=== PATIENT | male | born 1935 | race Caucasian/White ===

== ENCOUNTER → 2016-06-18 | Outpatient (CLI) | payer OTHER, MEDICARE ==
[~2016-06-18] MED LIST: ASPI81TA28 PO; CALC-220 PO; CHOL20007 PO; COEN200C4 PO; GLUCTAB7 PO; LPRIUNK IM; MULT-190 PO; MULT-506 PO; OMEP40CA41 PO; PRAV20TA PO; PRVC/40 PO; TPRSR/25 PO; ZVR400 PO; [UNRECOGNIZED DRUG - CODE] INJ
--- NOTE | 2016-06-18 12:26 | DIAGNOSTIC IMAGING REPORT ---
ADDENDUM Addendum: There is a voice recognition are on the original report. The last line of the first page should read as follows: There are NO FDG avid skeletal lesions Electronically signed by: Gaetano Boo M.D. 06/20/2016 2:07 PM Dictated Date/Time: 06/20/2016 2:06 PM ORIGINAL REPORT PET/CT SKULL-THIGH CLINICAL HISTORY: PROSTATE CANCER COMPARISON STUDY: 12/21/2015 FINDINGS: The patient was injected with 14.7 mCi of F 18 labeled FDG. Findings standard induction phase, PET/CT scanning was performed from the skull base the upper thigh region. Activity within neck is felt to be physiologic. Within the chest, there is a 3.6 cm masslike opacity which is only minimally FDG avid with SUV maximum of 1.8. This is slowly enlarging when compared with multiple prior studies. There is no FDG avid adenopathy. The previously identified FDG avid lymph nodes, currently demonstrate normal activity. Within the abdomen and pelvis, there is no FDG avid hepatic disease. There is no FDG avid adrenal activity. There is physiologic urinary tract and bowel activity. Within the low pelvis to the right of midline, there is intense focus of increased FDG activity with SUV maximum of 6.2. This fuses to either colon or ureter. There are no pathologic masses identified to explain this activity and therefore ureteral activity is favored. This area warrants close follow-up. There are FDG avid skeletal lesions. There is left-sided nephrolithiasis IMPRESSION: 1. The previously identified FDG avid lymph nodes have diminished in size, and are no longer FDG avid 2. 3.6 cm area of masslike consolidation within the left lower lobe. This appears slowly enlarging over studies dating back to December 2013. This is only minimally FDG avid with SUV maximum of 1.8. 3. Focus of intense increased activity within the lower right pelvis. There are no corresponding masses on the noncontrast portion of the study. This therefore favors focal ureteral activity. Close follow-up of this area is recommended. Electronically signed by: Gaetano Boo M.D. 06/18/2016 12:25 PM Dictated Date/Time: 06/18/2016 12:13 PM
== END | disposition home or self-care (01) ==
LOC: C.PET 08:30
PROVIDERS: ATTEND Internal Medicine
DX: C61 Malignant neoplasm of prostate (principal)

== ENCOUNTER → 2016-11-22 | Day surgery (SDC) | payer OTHER, MEDICARE ==
[2016-10-30 08:18] VITALS: Ht 168.9 cm; Wt 77.3 kg
[~2016-11-22] VITALS: Ht 168.9 cm; Wt 77.3 kg
[~2016-11-22] MED LIST changes: -CALC-220 PO; +IOPAMIDOL INJ 61% 15 ML VIAL ONE; +LIDOCAINE HCL 1% MPF 5 ML VIAL ONE; -PRAV20TA PO; +SODIUM CHLORIDE 0.9% INJ 10 ML VIAL ONE
--- NOTE | 2016-11-22 13:17 | History & Physical Bridge - SC ---
H&P Re-Evaluation Bridge Note: I have examined the patient, reviewed the History & Physical and in the interval since the performance of the History & Physical I have noted the following changes of clinical significance: No changes noted
[2016-11-22 13:43] VITALS: TEMP 36.9
--- NOTE | 2016-11-22 13:51 | Discharge Instructions ---
Discharge Instructions Date of Service Nov 22, 2016. Visit Reason for Visit: Lumbar Radiculopathy Discharge Discharge Diagnosis / Problem: left leg pain Discharge Goals Goal(s): Decrease discomfort, Improve function Medications Stopped Medications Name(s): ASA- LAST DOSE SATURDAY Activity Recommendations Activity Limitations: resume your previous activity Anesthesia . Post Anesthesia Instructions: If you have had General Anesthesia or IV Sedation: * Do not drive today. * Resume driving when surgeon permits. * Do not make important decisions or sign legal documents today. * Call surgeon for: 1. Temperature elevations greater than 101 degrees F. 2. Uncontrollable pain. 3. Excessive bleeding. 4. Persistent nausea and vomiting. 5. Medication intolerance (nausea, vomiting or rash). * For nausea and vomiting use only clear liquids such as: tea, soda, bouillon until nausea subsides, then gradually increase diet as tolerated. * If you have any concerns or questions, call your surgeon's office. If physician is unavailable and it is an emergency, call 911 or go to the nearest emergency room. . Diet Recommendations Recommended Home Diet: resume previous diet Procedures Procedures Performed: LUMBAR EPIDURAL STEROID INJECTION, CHANGED TO CAUDAL APPROACH Pending Studies Studies pending at discharge: no Medical Emergencies . Who to Call and When: Medical Emergencies: If at any time you feel your situation is an emergency, please call 911 immediately. . Non-Emergent Contact Non-Emergency issues call your: Specialist . . "Provider Documentation" section prepared by Meng Argueta. .
[2016-11-22 14:00] VITALS: BP 172/103; PULSE 67; O2SAT 97
--- NOTE | 2016-11-22 14:44 | OPERATIVE REPORT ---
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 POSTOPERATIVE DIAGNOSIS: Same. PROCEDURE: Caudal epidural steroid injection under fluoroscopic guidance. SURGEON: Dr. Meng Argueta. INDICATIONS: The patient is a 81-year-old white male who was unable to tolerate gabapentin and who still continues to have left-sided radicular pain. He would like to proceed with an epidural steroid injection to provide him with some relief of the radicular pain. PHYSICAL EXAMINATION: Pleasant male seated comfortably in no apparent distress. He has normal lower extremity: No focal weakness. No sensory disturbance and negative seated straight leg raises. CONSENT: Verbal and written consent was obtained from the patient. Risks and benefits were reviewed. Risks include but are not limited to epidural abscess, epidural hematoma, allergic reaction. He wishes to proceed. PROCEDURE: The patient was taken back to the special procedures room of the [facility] where he was maintained in a prone position. Backside was cleansed with Betadine x3 and a dry sterile dressing was applied. Fluoroscope was used to identify the sacral hiatus and the sacral canal and the overlying skin was anesthetized in the sacral hiatus with 4 mL of lidocaine 1% with a 25 gauge 1.5-inch needle. A 25 gauge 3.5 inch spinal needle was then directed under lateral fluoroscopic guidance into the lateral sacral canal. He then underwent injection after negative aspiration of 40 mg of Depo-Medrol and 5 mL of preservative free sodium chloride. Injection was well tolerated. DISPOSITION: 1. The patient is taken out into the discharge recovery area where he will be discharged home once discharge criteria have been met. 2. Follow up in the [facility] office in 2-4 weeks. I attest to the content of the Intraoperative Record and any orders documented therein. Any exception s are noted below.
== END | disposition home or self-care (01) ==
LOC: X.SURG 12:30
PROVIDERS: ATTEND Physical Medicine & Rehabilitation
DX: M99.73 Connective tissue and disc stenosis of intervertebral foramina of lumbar region (principal); M54.17 Radiculopathy, lumbosacral region; Z79.899 Other long term (current) drug therapy

== ENCOUNTER 2020-08-03 08:50 | Inpatient (IN) ==
[2020-08-03 09:48] LABS: Basophils # (auto) 0.04 K/uL (0-0.2); Basophils % (auto) 0.4 %; Eosinophils # (auto) 0.09 K/uL (0-0.5); Eosinophils % (auto) 0.9 %; Hematocrit (blood only) 42.7 % (42-52); Hemoglobin 14.1 g/dL (14.0-18.0); Immature Granulocytes # (auto) 0.03 K/uL (0.00-0.02); Immature Granulocytes % (auto) 0.3 %; Lymphocytes # (auto) 0.39 K/uL (1.2-3.4); Lymphocytes % (auto) 3.8 %; Mean Corpuscular Hemoglobin 31.1 pg (25-34); Mean Corpuscular Volume 94.1 fL (80-100); Mean Platelet Volume 10.2 fL (7.4-10.4); Monocytes # (auto) 0.34 K/uL (0.11-0.59); Monocytes % (auto) 3.3 %; Neutrophils # (auto) 9.35 K/uL (1.4-6.5); Neutrophils % (auto) 91.3 %; Platelet Count 246 K/uL (130-400); RDW Coefficient of Variation 13.6 % (11.5-14.5); RDW Standard Deviation 47.1 fL (36.4-46.3); Red Blood Count 4.54 M/uL (4.7-6.1); White Blood Count 10.24 K/uL (4.8-10.8)
[2020-08-03 09:55] LABS: Alanine Aminotransferase 28 U/L (12-78); Albumin Level 3.2 gm/dl (3.4-5.0); Aspartate Aminotransferase 22 U/L (15-37); BUN Creatinine Ratio 22.4 (10-20); Blood Urea Nitrogen 23 mg/dl (7-18); Calcium 10.1 mg/dl (8.5-10.1); Carbon Dioxide 28 mmol/L (21-32); Chloride 104 mmol/L (98-107); Est GFR (African American) 77.1 ml/min; Est GFR (Non-African American) 66.6 ml/min; Glucose 145 mg/dl (70-99); Potassium 4.4 mmol/L (3.5-5.1); Sodium 137 mmol/L (136-145)
[2020-08-03 10:07] LABS: Albumin Globulin Ratio 0.8 (0.9-2); Alkaline Phosphatase 97 U/L (45-117); Bilirubin,Total 0.4 mg/dl (0.2-1); Creatine Kinase 43 U/L (39-308); Creatine Kinase MB 2.1 ng/ml (0.5-3.6); Globulin 3.9 gm/dl (2.5-4.0); Thyroid Stimulating Hormone 0.959 uIu/ml (0.300-4.500); Total Protein 7.1 gm/dl (6.4-8.2); Troponin I < 0.015 ng/ml (0-0.045)
--- NOTE | 2020-08-03 10:07 | Emergency Department Note ---
History of Present Illness General Chief complaint: Illness Stated complaint: SWEAY,WEAK,LT SIDE PAIN,DIARRHEA,FALL 2WKS AGO Time Seen by Provider: 08/03/20 09:28 Source: patient, family, RN notes reviewed and old records reviewed Mode of arrival: ambulatory Limitations: no limitations History of Present Illness Provider complaint: Syncopal episode Onset (ago): hour(s) 1 Location: head Radiation: non-radiation Severity: moderate Pain Consistency: + now resolved Current Pain Intensity: 0 Quality: + aching Relieved By: + immobilization Exacerbated By: + movement Associated symptoms: + diaphoresis, + shortness of breath and + weakness; no chest pain, no cough, no fever/chills, no headaches and no nausea/vomiting Treatments prior to arrival: none This is an 84-year-old male who presents emergency department after syncopal episode at home. The patient reports he was using the bathroom today when he became diaphoretic and passed out. The patient reports he broke his collarbone approximately 2 weeks ago and has been on opioids. They have caused him to be extremely constipated and he was having difficulty moving his bowels until this morning. This morning the patient reports he had a very large bowel movement which caused him to pass out. He has not taken anything since passing out. He reported feeling dizzy and weak before the syncopal episode. He denies any chest pain or shortness of breath. Home Medications Medication Instructions Recorded Confirmed Type leuprolide (6 month) 45 mg 45 mg IM Q24W 07/08/20 08/03/20 History intramuscular syringe kit nitroglycerin 0.4 mg sublingual 0.4 mg SUBLINGUAL Q5M PRN 07/08/20 08/03/20 History tablet rosuvastatin 40 mg tablet 40 mg PO HS 07/08/20 08/03/20 History tramadol 50 mg tablet 50 mg PO QID PRN tab 07/08/20 08/03/20 History zoledronic acid 4 mg/100 mL in 4 mg IV Q24W ml 07/08/20 08/03/20 History mannitol 5 %-water intravenous piggybck Cbd Oil 50 ml PO Q12 07/09/20 08/03/20 History Inj For Wet Macular Degenerate 1 dose INJ Q24W 07/09/20 08/03/20 History Quercetin 500 mg PO DAILY 07/09/20 08/03/20 History Turmeric Forte 2 tab PO DAILY 07/09/20 07/09/20 History acyclovir 400 mg PO QAM 07/09/20 08/03/20 History cholecalciferol (vitamin D3) 50 mcg PO QAM 07/09/20 08/03/20 History [Vitamin D3] coQ10 (ubiquinol) 200 mg PO QAM 07/09/20 08/03/20 History metoprolol succinate 50 mg PO HS 07/09/20 08/03/20 History omeprazole 40 mg PO DAILY 07/09/20 08/03/20 History vit C,K-Mp-xvwvo-lutein-zeaxan 1 tab PO BID 07/09/20 08/03/20 History [PreserVision AREDS-2] valsartan 80 mg PO PM 08/03/20 08/03/20 History Allergies Allergy/AdvReac Type Severity Reaction Status Date / Time No Known Allergies Allergy Verified 08/03/20 10:46 Past Med/Surg History Medical History (Updated 08/03/20 @ 15:17 by ESDRAS Gonzalez) Barretts esophagus Coronary artery disease GERD (gastroesophageal reflux disease) Heart disease History of radiation therapy For prostate cancer in 1998 at [place] For gynecomastia 09/04/06 at [facility] SBRT to lung 09/07/14 at [facility] Hyperlipidemia Hypertension Kidney stone Macular degeneration Prostate cancer Diagnosed 01/03/99 at [place] in [place] 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 Scoliosis Unstable angina Surgical History H/O blepharoplasty H/O cystoscopy H/O heart artery stent H/O laminectomy H/O rotator cuff surgery Right H/O vasectomy History of bronchoscopy History of cardiac cath History of cataract surgery History of cryosurgery For recurrent prostate cancer August 2005 History of surgery Bronchoscopy, Right thoracoscopy with lower lobectomy and thoracic lymphadenectomy - metastatic prostate cancer 06/09/13 Hx of CABG Hx of tonsillectomy S/P angioplasty with stent Family History Mother , 95yo Macular degeneration Natural with unknown cause Father , 87yo Prostate cancer Brother Esophageal cancer Brother Prostate cancer Sister No problems noted. Son No problems noted. Daughter No problems noted. 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 [employer]; Other Information That Helps Us Care for You: No Feels Safe at Home: Yes Safety Concerns: Feels Safe At This Time caffeine: Yes (1 cup/day) during the past year weight has: remained stable Assistive Devices: None Review of Systems A total of 10 systems reviewed and were otherwise negative Physical Exam Vital Signs Vital Signs - 24 hr 08/03/20 08:56 08/03/20 12:00 08/03/20 14:00 Temperature 36.2 C L Temperature Source Temporal Artery Scan Pulse Rate 60 Pulse Rate [Left Apical] 96 H 97 H Pulse Rhythm [Left Apical] Regular Regular Pulse Strength [Left Apical] Normal Normal Respiratory Rate 20 17 17 Respiratory Effort / Characteristics Non-Labored Spontaneous Non-Labored Spontaneous Non-Labored Spontaneous Respiratory Depth Normal Normal Normal Respiratory Pattern Regular Regular Blood Pressure 94/51 L Blood Pressure [Left Arm] 114/82 149/65 H Blood Pressure Mean 65 Blood Pressure Mean [Left Arm] 92 93 Blood Pressure Position [Left Arm] Lying Lying Pulse Oximetry 96 99 98 Oxygen Delivery Method Room Air Room Air Room Air Sepsis Recent Fever Within 48 Hours No Sepsis New/Unexplained Change in Mental Status N/A Sepsis Action Taken by Nursing No Action Required VITAL SIGNS - Vital signs and nursing notes were reviewed. GENERAL - 84-year-old male appearing stated age who is in no acute distress. Communicates well with provider and answers questions appropriately. SKIN - Without rashes. HEAD - NC/AT. EYES - PERRL with EOMI bilaterally. Sclera anicteric. Palpebral conjunctiva pink and moist with no injection noted. EARS - No deformities of external structures noted on gross examination bi laterally. NOSE - Midline and without cyanosis. No epistaxis or purulent drainage noted. Septum midline without deviation or septal hematoma noted. MOUTH/OROPHARYNX - Without perioral cyanosis. Buccal mucosa pink and moist and without leukoplakia. Tongue midline with equal elevation of palate bilaterally. No tonsillar hypertrophy, erythema, or exudates noted. NECK - Neck with FROM. Supple to palpation. No nuchal rigidity. LUNGS - Chest wall symmetric without accessory muscle use, intercostals retractions, or central cyanosis. Normal vesicular breath sounds CTA B/L. No wheezes, rales, or rhonchi appreciated. CARDIAC - RRR with S1/S2. No murmur, rubs, or gallops appreciated. ABDOMEN - Abdominal contour without pulsations or visible masses. BS normoactive all four quadrants. No tenderness, palpable masses, hepatosplenomegaly, or ascites noted. EXTREMITIES - No clubbing or peripheral cyanosis. No pretibial edema present. +3/5 radial, posterior tibial, and dorsalis pedis pulses palpated throughout. +5/5 strength noted in UE/LE bilaterally. Pt wearing sling for left arm NEUROLOGIC - Cranial nerves II through XII grossly intact. Sensory intact to light touch throughout. Patellar reflexes +2/4. PSYCH - A&Ox3 and cooperates fully with examiner. Pt is very pleasant and interacts well with examiner. Course Administered Medications Ondansetron HCl (Ondansetron Inj 2 Mg/Ml 2 Ml Vial) 4 mg IV Q6H PRN PRN Reason: Nausea Stop: 09/02/20 16:05 Last Admin: 08/03/20 17:20 Dose: 4 mg Documented by: [id number] Discontinued Medications Enoxaparin Sodium (Enoxaparin 80 Mg/0.8 Ml Syr) 70 mg SQ NOW STA Stop: 08/03/20 14:44 Last Admin: 08/03/20 15:26 Dose: 70 mg Documented by: [id number] Ioversol (Optiray 350 500ml) 120 ml IV ONCE ONE Stop: 08/03/20 12:47 Last Admin: 08/03/20 12:47 Dose: 120 ml Documented by: [id number] Ondansetron HCl (Ondansetron Inj 2 Mg/Ml 2 Ml Vial) 4 mg IV NOW STA Stop: 08/03/20 12:08 Last Admin: 08/03/20 12:15 Dose: 4 mg Documented by: [id number] Medical Decision Making Differential Diagnosis Infection, dehydration, metabolic abnormality, hypo/hyperglycemia, electrolyte disturbance, anemia, hypoxia, cardiac sources, intracerebral event, toxicologic, neurologic, as well as other pathologies. Medical Records Attestation: I reviewed the patient's medical records. Home Medications Current Medication List: was personally reviewed by me Laboratory Data Attestation: I reviewed the patient's lab results. Result diagrams: 08/03/20 09:20 08/03/20 09:20 Lab Results 08/03/20 08/03/20 08/03/20 Range/Units 09:20 09:20 09:20 WBC 10.24 (4.8-10.8) K/uL RBC 4.54 L (4.7-6.1) M/uL Hgb 14.1 (14.0-18.0) g/dL Hct 42.7 (42-52) % MCV 94.1 (80-100) fL MCH 31.1 (25-34) pg MCHC 33.0 (32-36) g/dL RDW Std Deviation 47.1 H (36.4-46.3) fL RDW Coeff of Lissa 13.6 (11.5-14.5) % Plt Count 246 (130-400) K/uL MPV 10.2 (7.4-10.4) fL Immature Gran % (Auto) 0.3 % Neut % (Auto) 91.3 % Lymph % (Auto) 3.8 % [place] % (Auto) 3.3 % Eos % (Auto) 0.9 % Baso % (Auto) 0.4 % Neut # (Auto) 9.35 H (1.4-6.5) K/uL Lymph # (Auto) 0.39 L (1.2-3.4) K/uL [place] # (Auto) 0.34 (0.11-0.59) K/uL Eos # (Auto) 0.09 (0-0.5) K/uL Baso # (Auto) 0.04 (0-0.2) K/uL Immature Gran # (Auto) 0.03 H (0.00-0.02) K/uL PT (9.0-12.0) Seconds INR (0.9-1.1) APTT (21.0-31.0) Seconds PTT Ratio Sodium 137 (136-145) mmol/L Potassium 4.4 (3.5-5.1) mmol/L Chloride 104 (98-107) mmol/L Carbon Dioxide 28 (21-32) mmol/L Anion Gap 5.0 (3-11) BUN 23 H (7-18) mg/dl Creatinine 1.04 (0.6-1.4) mg/dl Est Cr Clr Drug Dosing Not Reportable Est GFR ( Amer) 77.1 ml/min Est GFR (Non-Af Amer) 66.6 ml/min BUN/Creatinine Ratio 22.4 H (10-20) Glucose 145 H (70-99) mg/dl Lactate (0.4-2.0) mmol/L Calcium 10.1 (8.5-10.1) mg/dl Total Bilirubin 0.4 (0.2-1) mg/dl AST 22 (15-37) U/L ALT 28 (12-78) U/L Alkaline Phosphatase 97 (45-117) U/L Total Creatine Kinase 43 (39-308) U/L CK-MB (CK-2) 2.1 (0.5-3.6) ng/ml CK/CKMB % Calc 4.9 H (0-3.0) Troponin I < 0.015 (0-0.045) ng/ml NT-Pro-B Natriuret Pep 187 (0-1800) pg/ml Total Protein 7.1 (6.4-8.2) gm/dl Albumin 3.2 L (3.4-5.0) gm/dl Globulin 3.9 (2.5-4.0) gm/dl Albumin/Globulin Ratio 0.8 L (0.9-2) TSH 0.959 (0.300-4.500) uIu/ml Urine Color Urine Appearance (Clear) Urine pH (4.5-7.5) Ur Specific [place] (1.000-1.030) Urine Protein (Negative) Urine Glucose (UA) (Negative) Urine Ketones (Negative) Urine Blood (Negative) Urine Nitrite (Negative) Urine Bilirubin (Negative) Urine Urobilinogen (Negative) Ur Leukocyte Esterase (Negative) Urine WBC (Auto) (0-5) /hpf Urine RBC (Auto) (0-4) /hpf U Hyaline Cast (Auto) (0-5) /lpf U Epithel Cells (Auto) (0-5) /lpf Urine Bacteria (Auto) (Negative) COVID-19 Eval Order SARS-CoV-2 (PCR) (Negative) 08/03/20 08/03/20 08/03/20 Range/Units 13:55 13:55 13:55 WBC (4.8-10.8) K/uL RBC (4.7-6.1) M/uL Hgb (14.0-18.0) g/dL Hct (42-52) % MCV (80-100) fL MCH (25-34) pg MCHC (32-36) g/dL RDW Std Deviation (36.4-46.3) fL RDW Coeff of Lissa (11.5-14.5) % Plt Count (130-400) K/uL MPV (7.4-10.4) fL Immature Gran % (Auto) % Neut % (Auto) % Lymph % (Auto) % [place] % (Auto) % Eos % (Auto) % Baso % (Auto) % Neut # (Auto) (1.4-6.5) K/uL Lymph # (Auto) (1.2-3.4) K/uL [place] # (Auto) (0.11-0.59) K/uL Eos # (Auto) (0-0.5) K/uL Baso # (Auto) (0-0.2) K/uL Immature Gran # (Auto) (0.00-0.02) K/uL PT (9.0-12.0) Seconds INR (0.9-1.1) APTT (21.0-31.0) Seconds PTT Ratio Sodium (136-145) mmol/L Potassium (3.5-5.1) mmol/L Chloride (98-107) mmol/L Carbon Dioxide (21-32) mmol/L Anion Gap (3-11) BUN (7-18) mg/dl Creatinine (0.6-1.4) mg/dl Est Cr Clr Drug Dosing Est GFR ( Amer) ml/min Est GFR (Non-Af Amer) ml/min BUN/Creatinine Ratio (10-20) Glucose (70-99) mg/dl Lactate (0.4-2.0) mmol/L Calcium (8.5-10.1) mg/dl Total Bilirubin (0.2-1) mg/dl AST (15-37) U/L ALT (12-78) U/L Alkaline Phosphatase (45-117) U/L Total Creatine Kinase (39-308) U/L CK-MB (CK-2) (0.5-3.6) ng/ml CK/CKMB % Calc (0-3.0) Troponin I (0-0.045) ng/ml NT-Pro-B Natriuret Pep (0-1800) pg/ml Total Protein (6.4-8.2) gm/dl Albumin (3.4-5.0) gm/dl Globulin (2.5-4.0) gm/dl Albumin/Globulin Ratio (0.9-2) TSH (0.300-4.500) uIu/ml Urine Color Yellow Urine Appearance Clear (Clear) Urine pH 5.0 (4.5-7.5) Ur Specific [place] > 1.045 H (1.000-1.030) Urine Protein Trace H (Negative) Urine Glucose (UA) Negative (Negative) Urine Ketones Trace H (Negative) Urine Blood Negative (Negative) Urine Nitrite Negative (Negative) Urine Bilirubin Negative (Negative) Urine Urobilinogen Negative (Negative) Ur Leukocyte Esterase Negative (Negative) Urine WBC (Auto) 1-5 (0-5) /hpf Urine RBC (Auto) 0-4 (0-4) /hpf U Hyaline Cast (Auto) 1-5 (0-5) /lpf U Epithel Cells (Auto) 5-10 H (0-5) /lpf Urine Bacteria (Auto) Negative (Negative) COVID-19 Eval Order Covid19 at [facility] SARS-CoV-2 (PCR) NEGATIVE (Negative) 08/03/20 08/03/20 Range/Units 14:20 14:20 WBC (4.8-10.8) K/uL RBC (4.7-6.1) M/uL Hgb (14.0-18.0) g/dL Hct (42-52) % MCV (80-100) fL MCH (25-34) pg MCHC (32-36) g/dL RDW Std Deviation (36.4-46.3) fL RDW Coeff of Lissa (11.5-14.5) % Plt Count (130-400) K/uL MPV (7.4-10.4) fL Immature Gran % (Auto) % Neut % (Auto) % Lymph % (Auto) % [place] % (Auto) % Eos % (Auto) % Baso % (Auto) % Neut # (Auto) (1.4-6.5) K/uL Lymph # (Auto) (1.2-3.4) K/uL [place] # (Auto) (0.11-0.59) K/uL Eos # (Auto) (0-0.5) K/uL Baso # (Auto) (0-0.2) K/uL Immature Gran # (Auto) (0.00-0.02) K/uL PT 10.5 (9.0-12.0) Seconds INR 1.0 (0.9-1.1) APTT 24.8 (21.0-31.0) Seconds PTT Ratio 0.9 Sodium (136-145) mmol/L Potassium (3.5-5.1) mmol/L Chloride (98-107) mmol/L Carbon Dioxide (21-32) mmol/L Anion Gap (3-11) BUN (7-18) mg/dl Creatinine (0.6-1.4) mg/dl Est Cr Clr Drug Dosing Est GFR ( Amer) ml/min Est GFR (Non-Af Amer) ml/min BUN/Creatinine Ratio (10-20) Glucose (70-99) mg/dl Lactate 2.0 (0.4-2.0) mmol/L Calcium (8.5-10.1) mg/dl Total Bilirubin (0.2-1) mg/dl AST (15-37) U/L ALT (12-78) U/L Alkaline Phosphatase (45-117) U/L Total Creatine Kinase (39-308) U/L CK-MB (CK-2) (0.5-3.6) ng/ml CK/CKMB % Calc (0-3.0) Troponin I (0-0.045) ng/ml NT-Pro-B Natriuret Pep (0-1800) pg/ml Total Protein (6.4-8.2) gm/dl Albumin (3.4-5.0) gm/dl Globulin (2.5-4.0) gm/dl Albumin/Globulin Ratio (0.9-2) TSH (0.300-4.500) uIu/ml Urine Color Urine Appearance (Clear) Urine pH (4.5-7.5) Ur Specific [place] (1.000-1.030) Urine Protein (Negative) Urine Glucose (UA) (Negative) Urine Ketones (Negative) Urine Blood (Negative) Urine Nitrite (Negative) Urine Bilirubin (Negative) Urine Urobilinogen (Negative) Ur Leukocyte Esterase (Negative) Urine WBC (Auto) (0-5) /hpf Urine RBC (Auto) (0-4) /hpf U Hyaline Cast (Auto) (0-5) /lpf U Epithel Cells (Auto) (0-5) /lpf Urine Bacteria (Auto) (Negative) COVID-19 Eval Order SARS-CoV-2 (PCR) (Negative) Imaging Data Attestation: I personally reviewed and interpreted this imaging study as tammio ws: Radiologist's Impression: Chest X-Ray 08/03/20 09:34 SINGLE VIEW CHEST CLINICAL HISTORY: Generalized weakness. FINDINGS: An AP, portable, upright chest radiograph is compared to study dated 07/09/2020 and correlated with chest CT dated 06/22/2014 and PET/CT dated 07/29/2019. The patient is status post midline sternotomy. The heart is mildly enlarged noting atherosclerotic calcification of the thoracic aorta. The pulmonary vasculature is noncongested. There is volume loss in the left lung with elevation of the left hemidiaphragm. There are 2 nodular densities in the right midlung measuring up to 1.8 cm. No airspace consolidation is seen typical for pneumonia and there is no large pleural effusion. No pneumothorax is seen. The skeletal structures are osteopenic. The bony thorax is grossly intact. A right shoulder arthroplasty is in place. Advanced arthritic change is seen in the left shoulder. IMPRESSION: 1. There is volume loss in the left lung with elevation of the left hemidiaphragm. This could be on a postoperative basis or could represent left lower lobe atelectasis. Clinical correlation will be required. 2. There are at least 2 nodular lesions identified in the right lung as above. 3. There is no airspace consolidation typical for pneumonia or large pleural effusion. ACT 112: Negative or not required by law. Electronically signed by: Sushant Rosado M.D. 08/03/2020 10:07 AM Chest CTA 08/03/20 10:10 CHEST CTA for PULMONARY ARTERIES CT DOSE: 559.44 mGycm HISTORY: Shortness of breath. Cough. TECHNIQUE: Multiaxial CT images of the chest were performed following the intravenous administration of contrast to evaluate the pulmonary arteries. Maximal intensity projection images were also obtained. A dose lowering technique was utilized adhering to the principles of ALARA. COMPARISON STUDY: PET CT 07/29/2019. Chest CT 06/22/2014. FINDINGS: Normal caliber thoracic aorta with no evidence for dissection. The heart is borderline enlarged. There are poststernotomy changes. Small left pleural effusion. There is a large filling defects within the distal left main pulmonary artery and extending into the left lower lobe pulmonary arteries consistent with a pulmonary embolus. The right main pulmonary artery is patent. The majority of the segmental and subsegmental pulmonary arteries are nondiagnostic due to the respiratory motion. Limited views of the upper abdomen demonstrate a normal spleen and adrenal glands. There are multiple left renal calculi. A 6 mm hypodense lesion within the left hepatic lobe remains stable. Normal esophagus. Left anterior mediastinal lymphadenopathy/mass is again noted measuring up to 3.1 cm. There is mild left hilar lymphadenopathy. No suspicious lytic or blastic osseous lesions. There is a right shoulder prosthesis. No pneumothorax. Increase in size and number of multiple bilateral pulmonary nodules/masses. This likely represents metastatic disease. Dominant mass within the left lower lobe measures 4.3 cm, previous measuring 3.5 cm. Consolidation at the base of the left lower lobe. IMPRESSION: 1. Large filling defect within the distal left main pulmonary artery which extends into the left lower lobe pulmonary arteries consistent with a pulmonary embolus. 2. Increase in size and number of the multiple bilateral pulmonary nodules/masses consistent with metastatic disease. 3. Small left pleural effusion. 4. Left anterior mediastinal lymphadenopathy/mass is again noted. There is also mild left hilar lymphadenopathy. This also consistent with metastatic disease. 5. Patchy densities at the left lung base are nonspecific and could represent atelectasis or pneumonia. ACT 112: Negative or not required by law. Electronically signed by: Nathanael Ribeiro M.D. 08/03/2020 1:25 PM ECG Data Additional Comments: EKG shows a normal sinus rhythm possible left atrial enlargement left axis deviation old inferior infarct old anterior lateral infarct QTC is 437 ventricular rate is 93 when compared to EKG 07/09/2020 ventricular rate has increased by 35. MDM Narrative This is an 84-year-old male who presents emergency department complaining of syncopal episode. Using shared medical decision making with the patient a chest x-ray was obtained which was concerning for new spots. He was then sent for a CAT scan of the chest. This was concerning for a PE. I did talk everything over with the patient's doctor Dr. Manfred Simon at [facility] med oncology [phone]. After discussion with pharmacy as well as the hospitalist we feel that the patient should be admitted to the hospital. He was started on Lovenox shots. The patient was placed on the quality assurance monitor chassis which shows a rate of 97 with a normal sinus rhythm Impression & Plan Vasovagal episode, Metastatic cancer, Pulmonary embolism Discharge Plan Visit Data Chief Complaint: Illness Stated Complaint: SWEAY,WEAK,LT SIDE PAIN,DIARRHEA,FALL 2WKS AGO ED Provider: Clark Walker Discharge Problem: Vasovagal episode, Metastatic cancer, Pulmonary embolism Patient Disposition: Home - Self-Care Condition: Good Discharge Instructions Interventions: ED Discharge Assessment Last Done: 08/03/20 15:35 Discharge Problem: Metastatic cancer Qualifiers: Area of secondary neoplastic involvement: unspecified site Qualified Code(s): C79.9 - Secondary malignant neoplasm of unspecified site Pulmonary embolism Qualifiers: Pulmonary embolism type: unspecified Chronicity: unspecified Acute cor pulmonale presence: unspecified Qualified Code(s): I26.99 - Other pulmonary embolism without acute cor pulmonale
--- NOTE | 2020-08-03 10:08 | XRay Report ---
SINGLE VIEW CHEST CLINICAL HISTORY: Generalized weakness. FINDINGS: An AP, portable, upright chest radiograph is compared to study dated 07/09/2020 and correlat ed with chest CT dated 06/22/2014 and PET/CT dated 07/29/2019. The patient is status post midline sterno jefferson. The heart is mildly enlarged noting atherosclerotic calcification of the thoracic aorta. The pu lmonary vasculature is noncongested. There is volume loss in the left lung with elevation of the left hemidiaphragm. There are 2 nodular densities in the right midlung measuring up to 1.8 cm. No airspac e consolidation is seen typical for pneumonia and there is no large pleural effusion. No pneumothorax is seen. The skeletal structures are osteopenic. The bony thorax is grossly intact. A right shoulder arthroplasty is in place. Advanced arthritic change is seen in the left shoulder. IMPRESSION: 1. There is volume loss in the left lung with elevation of the left hemidiaphragm. This could be on a postoperative basis or could represent left lower lobe atelectasis. Clinical correlation will be req uired. 2. There are at least 2 nodular lesions identified in the right lung as above. 3. There is no airspace consolidation typical for pneumonia or large pleural effusion. ACT 112: Negative or not required by law. Electronically signed by: Sushant Rosado M.D. 08/03/2020 10:07 AM
[2020-08-03] MEDS ORDERED: ONDANSETRON INJ 2 MG/ML 2 ML VIAL IV STA (12:07)
[2020-08-03] MEDS ORDERED: OPTIRAY 350 500ml IV ONE (12:46)
--- NOTE | 2020-08-03 12:57 | Electrocardiogram Report ---
Test Reason : Blood Pressure : / mmHG Vent. Rate : 093 BPM Atrial Rate : 093 BPM P-R Int : 202 ms QRS Dur : 100 ms QT Int : 352 ms P-R-T Axes : 011 -34 026 degrees QTc Int : 437 ms Normal sinus rhythm Possible Left atrial enlargement Left axis deviation Inferior infarct , age undetermined Anterolateral infarct (cited on or before 03-AUG-2020) Abnormal ECG When compared with ECG of 09-JUL-2020 02:26, Vent. rate has increased BY 35 BPM Inferior infarct is now Present Nonspecific T wave abnormality now evident in Anterior leads Confirmed by David Thompson ([id number]) on 08/03/2020 12:56:44 PM Referred By: REFERRED SELF Confirmed By:Junaid Thompson
--- NOTE | 2020-08-03 13:26 | CT Scan Report ---
CHEST CTA for PULMONARY ARTERIES CT DOSE: 559.44 mGycm HISTORY: Shortness of breath. Cough. TECHNIQUE: Multiaxial CT images of the chest were performed following the intravenous administration of contrast to evaluate the pulmonary arteries. Maximal intensity projection images were also obtaine d. A dose lowering technique was utilized adhering to the principles of ALARA. COMPARISON STUDY: PET CT 07/29/2019. Chest CT 06/22/2014. FINDINGS: Normal caliber thoracic aorta with no evidence for dissection. The heart is borderline enla rged. There are poststernotomy changes. Small left pleural effusion. There is a large filling defects within the distal left main pulmonary artery and extending into the left lower lobe pulmonary arteri es consistent with a pulmonary embolus. The right main pulmonary artery is patent. The majority of th e segmental and subsegmental pulmonary arteries are nondiagnostic due to the respiratory motion. Limi zaira views of the upper abdomen demonstrate a normal spleen and adrenal glands. There are multiple lef t renal calculi. A 6 mm hypodense lesion within the left hepatic lobe remains stable. Normal esophagu s. Left anterior mediastinal lymphadenopathy/mass is again noted measuring up to 3.1 cm. There is mil d left hilar lymphadenopathy. No suspicious lytic or blastic osseous lesions. There is a right should er prosthesis. No pneumothorax. Increase in size and number of multiple bilateral pulmonary nodules/m asses. This likely represents metastatic disease. Dominant mass within the left lower lobe measures 4 .3 cm, previous measuring 3.5 cm. Consolidation at the base of the left lower lobe. IMPRESSION: 1. Large filling defect within the distal left main pulmonary artery which extends into the left lowe r lobe pulmonary arteries consistent with a pulmonary embolus. 2. Increase in size and number of the multiple bilateral pulmonary nodules/masses consistent with met astatic disease. 3. Small left pleural effusion. 4. Left anterior mediastinal lymphadenopathy/mass is again noted. There is also mild left hilar lymph adenopathy. This also consistent with metastatic disease. 5. Patchy densities at the left lung base are nonspecific and could represent atelectasis or pneumoni a. ACT 112: Negative or not required by law. Electronically signed by: Nathanael Ribeiro M.D. 08/03/2020 1:25 PM
[2020-08-03 14:28] LABS: Appearance Urine Clear (Clear); Bacteria Urine Automated Negative (Negative); Bilirubin Urine Negative (Negative); Blood Urine Negative (Negative); Color Urine Yellow; Glucose Urine UA Negative (Negative); Ketones Urine Trace (Negative); Leukocyte Esterase Urine Negative (Negative); Nitrite Urine Negative (Negative); Protein Urine Trace (Negative); RBC Urine Automated 0-4 /hpf (0-4); Specific Gravity Urine > 1.045 (1.000-1.030); Urobilinogen Urine Negative (Negative)
[2020-08-03] MEDS ORDERED: ENOXAPARIN 80 MG/0.8 ML SYR SQ STA (14:43)
[2020-08-03 14:48] LABS: Partial Thromboplastin Ratio 0.9; Partial Thromboplastin Time 24.8 Seconds (21.0-31.0); Prothrombin Time 10.5 Seconds (9.0-12.0)
--- NOTE | 2020-08-03 14:58 | History & Physical Report ---
Date of Service August 03, 2020 Assessment & Plan (1) Pulmonary embolism: Large filling defect within the distal left main pulmonary artery which extends into the left lower lobe pulmonary arteries consistent with a pulmonary embolus. - PESI V, shock index 0.7, normal BNP, normal troponin - Start on LMWH- started discussion with assisted anticoagulation options. - multi team discussion/approach to continue - Admit to medical telemetry - Bilateral Doppler of lower extremity--- no evidence on exam of DVT (2) Prostate cancer: Follows with [facility]- has had externa beam radiation in 1998 and Stereotactic Body Radiotherapy to the left lower lobe in 2014 at [facility] - Is due to follow up with them in 2 weeks - Receiving Lupron and Zometa with [facility]. 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, sacrum, and intrathecal thoracic and lumbar spine - No acute needs at this time (3) Metastatic lung cancer (metastasis from lung to other site): As above and in imaging - dyspnea may be part of his disease progression - may be warranted to get PFT's (4) Vasovagal episode: Monitor on telemetry ECG and cardiac markers benign at this time. - He reports that he had one of his medications decreased afterwards; this appears to have been his ARB from IM notes. (5) GERD (gastroesophageal reflux disease): Continue omeprazole- with Casas per chart review History of Present Illness Primary Care Provider: Shadi Bolivar MD 84 YOM with past medical history of prostate cancer (~20 years) with metastatic disease to the lung and spine (this is followed by [facility]), HTN, HLD, syncope, dyspnea, 1v CABG, CAD with one stent, Casas esophagus. Patient comes to the emergency room today for evaluation of dyspnea associated with diaphoresis and hypotension at home. Patient got up this morning for breakfast had a boost energy drink and shortly there after he started not feeling well. He got a sharp pain in his left groin area, that was then associated with onset of voluminous diarrhea that was brown and watery, this progressed to him being dyspneic and pale. He went and laid down on the bed and his girlfriend reports that he was very pale looking and diaphoretic. They checked his BP at home and they reported it in the 70s. As the patient laid in the bed he said he started to feel better within a couple of minutes. He did not fell any other symptoms when he got up and walked to the car to come to the [facility]. In the emergency room he received 1 liter of crystalloid for BP 94/51 and had a CTA of the chest performed- this demonstrated a distal left main pulmonary embolism. He will be admitted to continue workup as well as start on anticoagulation. He will be started initially on LMWH q12. Will obtain Doppler of his bilateral lower extremities and place on telemetry. He is hemodynamically stable at this time. PESI of V, no troponin elevation and BNP of 187 and lactate of 2.0. The patient endorses that his dyspnea has been ongoing since April after flying back and forth from [place] to get his Covid Vaccines, and after the second Moderna vaccine he noticed dyspnea that has not gone away, he still gets dyspneic when walking approximally 25 feet. He has had 2 syncopal episodes since that time as well. One of these occurred in earlier in the month and was seen down in [place] where he had a CT of the chest done, which did not show evidence of a pulmonary embolism at that time. he also had a myocardial perfusion scan performed with no defects. Had an ECHO performed with EF 60-65% with grade 1 diastolic dysfunction. Mild mitral regurgitation and mild aortic sclerosis without stenosis. the other one occurred about two weeks ago resulting in a clavicle fracture when he got dizzy and light headed standing up from sitting position. Allergies Allergy/AdvReac Type Severity Reaction Status Date / Time No Known Allergies Allergy Verified 08/03/20 10:46 Home Medications Medication Instructions Recorded Confirmed Type leuprolide (6 month) 45 mg 45 mg IM Q24W 07/08/20 08/03/20 History intramuscular syringe kit nitroglycerin 0.4 mg sublingual 0.4 mg SUBLINGUAL Q5M PRN 07/08/20 08/03/20 History tablet rosuvastatin 40 mg tablet 40 mg PO HS 07/08/20 08/03/20 History tramadol 50 mg tablet 50 mg PO QID PRN tab 07/08/20 08/03/20 History zoledronic acid 4 mg/100 mL in 4 mg IV Q24W ml 07/08/20 08/03/20 History mannitol 5 %-water intravenous piggybck Cbd Oil 50 ml PO Q12 07/09/20 08/03/20 History Inj For Wet Macular Degenerate 1 dose INJ Q24W 07/09/20 08/03/20 History Quercetin 500 mg PO DAILY 07/09/20 08/03/20 History Turmeric Forte 2 tab PO DAILY 07/09/20 07/09/20 History acyclovir 400 mg PO QAM 07/09/20 08/03/20 History cholecalciferol (vitamin D3) 50 mcg PO QAM 07/09/20 08/03/20 History [Vitamin D3] coQ10 (ubiquinol) 200 mg PO QAM 07/09/20 08/03/20 History metoprolol succinate 50 mg PO HS 07/09/20 08/03/20 History omeprazole 40 mg PO DAILY 07/09/20 08/03/20 History vit C,R-Gz-pxpwq-lutein-zeaxan 1 tab PO BID 07/09/20 08/03/20 History [PreserVision AREDS-2] valsartan 80 mg PO PM 08/03/20 08/03/20 History Past Med/Surg History Medical History (Updated 08/03/20 @ 15:17 by ESDRAS Gonzalez) Barretts esophagus Coronary artery disease GERD (gastroesophageal reflux disease) Heart disease History of radiation therapy For prostate cancer in 1998 at [place] For gynecomastia 09/04/06 at [facility] SBRT to lung 09/07/14 at [facility] Hyperlipidemia Hypertension Kidney stone Macular degeneration Prostate cancer Diagnosed 01/03/99 at [facility] in [place] 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 Scoliosis Unstable angina Surgical History H/O blepharoplasty H/O cystoscopy H/O heart artery stent H/O laminectomy H/O rotator cuff surgery Right H/O vasectomy History of bronchoscopy History of cardiac cath History of cataract surgery History of cryosurgery For recurrent prostate cancer August 2005 History of surgery Bronchoscopy, Right thoracoscopy with lower lobectomy and thoracic lymphadenectomy - metastatic prostate cancer 06/09/13 Hx of CABG Hx of tonsillectomy S/P angioplasty with stent Family History Mother , 95yo Macular degeneration Natural with unknown cause Father , 87yo Prostate cancer Brother Esophageal cancer Brother Prostate cancer Sister No problems noted. Son No problems noted. Daughter No problems noted. Social History Smoking Status: Never smoker Second Hand Exposure: No; Do You Dip or Chew Tobacco: No; Tobacco Cessation Education Requested by Patient: No Hx Alcohol Use: Yes (1 beer w/dinner each day;) Alcohol type: beer Hx Substance Use: No Preferred Language: French Communication Ability: Effective Visual Impairment: No Limitations Hearing Ability: Normal Director E Learning Required: No Beliefs That Will Affect Care: None marital status: / Current Living Situation: Alone current occupational status: employed current occupation: [employer] of [employer]; Other Information That Helps Us Care for You: No Feels Safe at Home: Yes Safety Concerns: Feels Safe At This Time caffeine: Yes (1 cup/day) during the past year weight has: remained stable Assistive Devices: None Review of Systems Review of Systems: REVIEW OF SYSTEMS: Constitutional: No fever, sweats or chills Eyes: No diplopia, no worsening or blurred vision ENT: normal hearing (wears hearing aids) , no trouble swallowing Respiratory: (+) dyspnea on exertion, No cough, sputum, dyspnea at rest Cardiovascular: (+) dizziness, No chest pain, tightness or palpitations Abdomen: (+) pain diarrhea which is resolved, nausea, reports pants feeling tighter in abdomen, No vomiting, or constipation Musculoskeletal: No joint pain, calf pain, swelling Neurologic: No weakness, numbness/tingling, or balance problems Psychiatric: No anxiety or depression Skin: No rash or itch Physical Exam Physical Exam: PHYSICAL EXAM: General: awake, alert, no apparent distress Head: Normocephalic, atraumatic ENT: PERRL, EOMI, no pharyngeal exudate, mucous membranes moist Neuro: AAO x 3, speech clear and appropriate, strength intact bilaterally 5/5, sensation intact and equal all extremities and dermatomes, no pronator drift Chest: equal rise and fall of the chest, no accessory muscle use, no heaves or thrills, Clear to auscultation, on room air, Cardiac: Regular rate and rhythm, telemetry reviewed, skin warm dry, cap refill <3 seconds, peripheral pulses +2 no JVD, no murmur, no edema GI: NABS x 4 quadrants, soft, nontender to palpation, no rebound, guarding or tenderness : Spontaneously voiding, no pain, no CVA tenderness, Extremities: Normal inspection, no peripheral edema or erythema, calfs nontender to palpation Psych: Normal mood and affect Skin: no rash or erythema Results & Data Results & Data ([facility]) Vital Signs (Past 12 Hours) Vital Signs Temp Pulse Pulse Resp BP BP Pulse Ox 08/03/20 14:00 97 H 17 149/65 H 98 08/03/20 12:00 96 H 17 114/82 99 08/03/20 08:56 36.2 C L 60 20 94/51 L 96 Laboratory Results Abnormal lab results 08/03/20 08/03/20 08/03/20 Range/Units 09:20 09:20 13:55 RBC 4.54 L (4.7-6.1) M/uL RDW Std Deviation 47.1 H (36.4-46.3) fL Neut # (Auto) 9.35 H (1.4-6.5) K/uL Lymph # (Auto) 0.39 L (1.2-3.4) K/uL Immature Gran # (Auto) 0.03 H (0.00-0.02) K/uL BUN 23 H (7-18) mg/dl BUN/Creatinine Ratio 22.4 H (10-20) Glucose 145 H (70-99) mg/dl CK/CKMB % Calc 4.9 H (0-3.0) Albumin 3.2 L (3.4-5.0) gm/dl Albumin/Globulin Ratio 0.8 L (0.9-2) Ur Specific Vida > 1.045 H (1.000-1.030) Urine Protein Trace H (Negative) Urine Ketones Trace H (Negative) U Epithel Cells (Auto) 5-10 H (0-5) /lpf Diagnostic Findings Chest X-Ray 08/03/20 09:34 SINGLE VIEW CHEST CLINICAL HISTORY: Generalized weakness. FINDINGS: An AP, portable, upright chest radiograph is compared to study dated 07/09/2020 and correlated with chest CT dated 06/22/2014 and PET/CT dated 07/29/2019. The patient is status post midline sternotomy. The heart is mildly enlarged noting atherosclerotic calcification of the thoracic aorta. The pulmonary vasculature is noncongested. There is volume loss in the left lung with elevation of the left hemidiaphragm. There are 2 nodular densities in the right midlung measuring up to 1.8 cm. No airspace consolidation is seen typical for pneumonia and there is no large pleural effusion. No pneumothorax is seen. The skeletal structures are osteopenic. The bony thorax is grossly intact. A right shoulder arthroplasty is in place. Advanced arthritic change is seen in the left shoulder. IMPRESSION: 1. There is volume loss in the left lung with elevation of the left hemidiaphragm. This could be on a postoperative basis or could represent left lower lobe atelectasis. Clinical correlation will be required. 2. There are at least 2 nodular lesions identified in the right lung as above. 3. There is no airspace consolidation typical for pneumonia or large pleural effusion. Electronically signed by: Sushant Rosado M.D. 08/03/2020 10:07 AM Chest CTA 08/03/20 10:10 CHEST CTA for PULMONARY ARTERIES CT DOSE: 559.44 mGycm HISTORY: Shortness of breath. Cough. TECHNIQUE: Multiaxial CT images of the chest were performed following the in travenous administration of contrast to evaluate the pulmonary arteries. Maximal intensity projection images were also obtained. A dose lowering technique was utilized adhering to the principles of ALARA. COMPARISON STUDY: PET CT 07/29/2019. Chest CT 06/22/2014. FINDINGS: Normal caliber thoracic aorta with no evidence for dissection. The heart is borderline enlarged. There are poststernotomy changes. Small left pleural effusion. There is a large filling defects within the distal left main pulmonary artery and extending into the left lower lobe pulmonary arteries consistent with a pulmonary embolus. The right main pulmonary artery is patent. The majority of the segmental and subsegmental pulmonary arteries are nondiagnostic due to the respiratory motion. Limited views of the upper abdomen demonstrate a normal spleen and adrenal glands. There are multiple left renal calculi. A 6 mm hypodense lesion within the left hepatic lobe remains stable. Normal esophagus. Left anterior mediastinal lymphadenopathy/mass is again noted measuring up to 3.1 cm. There is mild left hilar lymphadenopathy. No suspicious lytic or blastic osseous lesions. There is a right shoulder prosthesis. No pneumothorax. Increase in size and number of multiple bilateral pulmonary nodules/masses. This likely represents metastatic disease. Dominant mass within the left lower lobe measures 4.3 cm, previous measuring 3.5 cm. Consolidation at the base of the left lower lobe. IMPRESSION: 1. Large filling defect within the distal left main pulmonary artery which extends into the left lower lobe pulmonary arteries consistent with a pulmonary embolus. 2. Increase in size and number of the multiple bilateral pulmonary nodules/masses consistent with metastatic disease. 3. Small left pleural effusion. 4. Left anterior mediastinal lymphadenopathy/mass is again noted. There is also mild left hilar lymphadenopathy. This also consistent with metastatic disease. 5. Patchy densities at the left lung base are nonspecific and could represent atelectasis or pneumonia. Electronically signed by: Nathanael Ribeior M.D. 08/03/2020 1:25 PM Medications Administered Home Medications leuprolide (6 month) 45 mg intramuscular syringe kit 45 mg IM Q24W 07/08/20 [History Confirmed 08/03/20] nitroglycerin 0.4 mg sublingual tablet 0.4 mg SUBLINGUAL Q5M PRN 07/08/20 [History Confirmed 08/03/20] rosuvastatin 40 mg tablet 40 mg PO HS 07/08/20 [History Confirmed 08/03/20] tramadol 50 mg tablet 50 mg PO QID PRN tab 07/08/20 [History Confirmed 08/03/20] zoledronic acid 4 mg/100 mL in mannitol 5 %-water intravenous piggybck 4 mg IV Q24W ml 07/08/20 [History Confirmed 08/03/20] Cbd Oil 50 ml PO Q12 07/09/20 [History Confirmed 08/03/20] Inj For Wet Macular Degenerate 1 dose INJ Q24W 07/09/20 [History Confirmed 08/03/20] Quercetin 500 mg PO DAILY 07/09/20 [History Confirmed 08/03/20] Turmeric Forte 2 tab PO DAILY 07/09/20 [History Confirmed 07/09/20] acyclovir 400 mg PO QAM 07/09/20 [History Confirmed 08/03/20] cholecalciferol (vitamin D3) [Vitamin D3] 50 mcg PO QAM 07/09/20 [History Confirmed 08/03/20] coQ10 (ubiquinol) 200 mg PO QAM 07/09/20 [History Confirmed 08/03/20] metoprolol succinate 50 mg PO HS 07/09/20 [History Confirmed 08/03/20] omeprazole 40 mg PO DAILY 07/09/20 [History Confirmed 08/03/20] vit C,C-Ab-ncjas-lutein-zeaxan [PreserVision AREDS-2] 1 tab PO BID 07/09/20 [History Confirmed 08/03/20] valsartan 80 mg PO PM 08/03/20 [History Confirmed 08/03/20] Active Medications Enoxaparin Sodium (Enoxaparin 80 Mg/0.8 Ml Syr) 70 mg SQ Q12H VÍCTOR Stop: 09/03/20 00:00 Discontinued Medications Ioversol (Optiray 350 500ml) 120 ml IV ONCE ONE Stop: 08/03/20 12:47 Last Admin: 08/03/20 12:47 Dose: 120 ml Documented by: [id number] Ondansetron HCl (Ondansetron Inj 2 Mg/Ml 2 Ml Vial) 4 mg IV NOW STA Stop: 08/03/20 12:08 Last Admin: 08/03/20 12:15 Dose: 4 mg Documented by: [id number] ECG Additional Comments: Vent. Rate : 093 BPM Atrial Rate : 093 BPM P-R Int : 202 ms QRS Dur : 100 ms QT Int : 352 ms P-R-T Axes : 011 -34 026 degrees QTc Int : 437 ms Normal sinus rhythm Possible Left atrial enlargement Left axis deviation Inferior infarct , age undetermined Anterolateral infarct (cited on or before 03-AUG-2020) Abnormal ECG Code Status & VTE Plan Code Status CODE: DNR/DNI VTE: SCD's, LMWH VTE Prophylaxis Plan VTE Prophylaxis will be ordered: Yes Supervising Physician Co-Signing Physician Notes Patient was seen and examined independently I discussed the case with Horacio DEWITT I reviewed pertinent past medical social family history and also the plan of care and agree with the plan of care. Patient with history of prostate cancer found to have pulmonary embolism. Is a fairly significantly sized pulmonary malaise and patient be kept for anticoagulation discussions with transition to one of the oral anticoagulants. Otherwise he has no new complaints or problems he is recently completed radiation therapy on his prostate here at the [facility] Cardiac exam is regular I hear no rubs or gallops his lungs are clear he is a sling on his right arm and has some ecchymosis still at his right clavicle Any exceptions will be noted below PG Care Time/CCT Total # of Minutes Spent Total Time Spent with Patient: Total time spent is greater than 50% in coordination of care (as documented) at patient's floor/unit and/or counseling patient: Coding Level of Care Code 12917 Initial Inpt Care Lvl 3 Diagnoses Pulmonary embolism I26.99 Acute cor pulmonale presence: unspecified Chronicity: unspecified Pulmonary embolism type: unspecified Prostate cancer C61 Metastatic lung cancer (metastasis from lung to other site) C34.90 Laterality: unspecified laterality Vasovagal episode R55 GERD (gastroesophageal reflux disease) K21.00 Esophagitis bleeding: without hemorrhage Esophagitis presence: with esophagitis (1) Metastatic lung cancer (metastasis from lung to other site) Laterality: unspecified laterality Qualified Code(s): C34.90 - Malignant neoplasm of unspecified part of unspecified bronchus or lung (2) Pulmonary embolism Acute cor pulmonale presence: unspecified Chronicity: unspecified Pulmonary embolism type: unspecified Qualified Code(s): I26.99 - Other pulmonary embolism without acute cor pulmonale (3) GERD (gastroesophageal reflux disease) Esophagitis bleeding: without hemorrhage Esophagitis presence: with esophagitis Qualified Code(s): K21.00 - Gastro-esophageal reflux disease with esophagitis, without bleeding
[2020-08-03] MEDS ORDERED: [UNRECOGNIZED DRUG - OTHER] INJ SCH (16:06)
[2020-08-03] MEDS ORDERED: traMADol HCL 50 MG TABLET PO PRN (16:06)
[2020-08-03] MEDS ORDERED: POLYETHYLENE (MIRALAX) 17 GM PACK PO PRN (16:06)
[2020-08-03] MEDS ORDERED: NITROGLYCERIN SL 0.4 MG/TAB TAB SL PRN (16:06)
--- NOTE | 2020-08-03 17:15 | Ultrasound Report ---
BILATERAL LOWER EXTREMITY VENOUS DOPPLER CLINICAL HISTORY: Rule out DVT following acute PE COMPARISON STUDY: No previous studies for comparison. TECHNIQUE: Sonography of the deep venous system of the bilateral lower extremities was performed. Co mpression and augmentation were evaluated. FINDINGS: The bilateral common femoral, superficial femoral and popliteal veins were compressible. A ugmentation was normal. Flow was shown within the deep calf vessels. IMPRESSION: No evidence of deep venous thrombus within the bilateral lower extremities. ACT 112: Negative or not required by law. Electronically signed by: De Mejia M.D. 08/03/2020 5:14 PM
[2020-08-03] MEDS: ONDANSETRON INJ 2 MG/ML 2 ML VIAL IV PRN (17:20)
[2020-08-03] MEDS: VALSARTAN 80 MG TAB PO SCH (20:54)
[2020-08-03] MEDS: ROSUVASTATIN CALCIUM 20 MG TAB PO SCH (20:54)
[2020-08-03] MEDS: METOPROLOL SUCC 50MG EXT REL TAB PO SCH (20:55)
[2020-08-03] MEDS: PROMETHAZINE HCL 6.25 MG in SODIUM CHLORIDE 0.9% 50 ML IV PRN (21:52)
[2020-08-04] MEDS: ENOXAPARIN 80 MG/0.8 ML SYR SQ SCH ×3 (00:05→21:36)
[2020-08-04 08:19] LABS: Basophils # (auto) 0.03 K/uL (0-0.2); Basophils % (auto) 0.3 %; Eosinophils # (auto) 0.04 K/uL (0-0.5); Eosinophils % (auto) 0.4 %; Hematocrit (blood only) 38.5 % (42-52); Hemoglobin 13.2 g/dL (14.0-18.0); Immature Granulocytes # (auto) 0.03 K/uL (0.00-0.02); Immature Granulocytes % (auto) 0.3 %; Lymphocytes # (auto) 0.39 K/uL (1.2-3.4); Lymphocytes % (auto) 3.5 %; Mean Corpuscular Hemoglobin 30.8 pg (25-34); Mean Corpuscular Hgb Conc 34.3 g/dL (32-36); Mean Corpuscular Volume 89.7 fL (80-100); Mean Platelet Volume 9.9 fL (7.4-10.4); Monocytes # (auto) 0.64 K/uL (0.11-0.59); Monocytes % (auto) 5.8 %; Neutrophils # (auto) 9.94 K/uL (1.4-6.5); Neutrophils % (auto) 89.7 %; Platelet Count 234 K/uL (130-400); RDW Coefficient of Variation 13.6 % (11.5-14.5); RDW Standard Deviation 44.4 fL (36.4-46.3); Red Blood Count 4.29 M/uL (4.7-6.1); White Blood Count 11.07 K/uL (4.8-10.8)
[2020-08-04 08:40] LABS: BUN Creatinine Ratio 34.7 (10-20); Creatinine Clr Calc Pharmacy 79.1 ml/min; Est GFR (Non-African American) 90.6 ml/min; Magnesium 1.9 mg/dl (1.8-2.4); Potassium 4.7 mmol/L (3.5-5.1)
[2020-08-04] MEDS: ASPIRIN 81 MG ECTAB PO SCH (08:53)
[2020-08-04] MEDS: CHOLECALCIFEROL 1,000 UNITS 25 MCG TAB PO SCH (08:54)
[2020-08-04] MEDS: PANTOprazole 40 MG TAB PO SCH (08:54)
[2020-08-04] MEDS ORDERED: NON-FORMULARY MEDICATION (Coq10 (Ubiquinol) 200 mg Capsule) PO SCH (09:00)
[2020-08-04] MEDS: PROMETHAZINE HCL 6.25 MG in SODIUM CHLORIDE 0.9% 50 ML IV PRN (11:38)
--- NOTE | 2020-08-04 14:48 | Hospitalist Progress Note ---
Date of Service August 04, 2020 Assessment & Plan (1) Pulmonary embolism: Presented with vasovagal episode after straining on the toilet. Noted to have initial BP of 70 systolic at home, diaphoresis. Denies any LE edema. Has traveled back and forth via plane from [place] to [place] 3 times in the last [address] m [facility]. Also received COVID vaccine 2nd dose in mid May and has felt SOB and dizzy at times since then. Has metastatic prostate CA--> certainly multiple plane rides and h/o CA provoked his VTE. Dopplers LE neg for DVT CTA Chest with large filling defect within the distal left main pulmonary artery which extends into the left lower lobe pulmonary arteries consistent with a pulmonary embolus. -PESI V, shock index 0.7, normal BNP, normal troponin -BPs low initially and responded to IVFs and may have been related to vasovagal syncope/straining with constipation rather than hypotension from PE -continue on therapeutic dosing of LMWH and will continue this given underlying cancer--> he has f/u with his Oncologist in 2 weeks and will discuss continuing on Lovenox vs could potentially convert to Xarelto -checked ECHO--> mild RV dilatation but normal RVSP, preserved LVEF, mod LVH -continue to monitor on tele, watch for signs of pulm infarct (2) Prostate cancer: Follows with [facility]- has had external beam radiation in 1998 and Stereotactic Body Radiotherapy to the left lower lobe in 2014 at [facility] Just completed XRT to the thoracic and lumbar spine 2-3 weeks ago for bony mets With mets to lungs, chest adenopathy, and bones - Is due to follow up with them in 2 weeks - Receiving Lupron and Zometa with [facility]. 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 Had been taking tramadol and T#3 for back pain. No events on tele, troponin neg on admission ECHO here without significant valvular disease, preserved EF Now with diarrhea, no straining any further avoid opioids watch BPs (4) Nausea: related possibly to PE? Vs vasovagal episode now improving with Zofran and phenergan and moving bowels continue diet as tolerated No abd pains, fevers. No need for imaging of abdomen at this time, exam of abdomen benign (5) Diarrhea: was constipated and straining for a while, now off opioids and having multiple loose BMs (6) GERD (gastroesophageal reflux disease): Continue omeprazole- with Casas's per chart review (7) Hyperlipidemia: continue Crestor (8) Hypertension: BPs controlled to mildly elevated now, previously hypotensive prior to arrival -continue home metoprolol, valsartan (9) Coronary artery disease: h/o CABG and stents no acute issues continue ASA, metoprolol, statin (10) Clavicle fracture: recent fall with presyncope causing Right clavicle fracture. Was in sling and now out of this, seen by Ortho as outpt (11) DVT prophylaxis: Lovenox Dispo-continued stay. If remains stable and nausea improving, no issues with fevers, hypoxia, BP, then dc to home tomorrow Admission and Anticipated Discharge Date Admission Date: August 03, 2020 Subjective Pt reports he had 4 BMs today, 2 of which were still loose like yesterday. He was previously dealing with constipation after being on tramadol for a while for bony pain. he was straining for a BM yesterday and passed out, then had watery stools, felt lightheaded and BP at home was in the 70s systolic. He did vomit once last night after arrival and then felt nauseated this AM but since receiving Zofran and then phenergan, he is now feeling better and was starting to eat some ice cream at lunchtime when I saw him. Denies CP or SOB. No abd pain except just before he has a loose stool he feels cramping which goes away after having a BM. He does report he has flown from [place] to [place] 3 times in the last 2 months. Remains off O2. Tele with NSR, rates 70-90s Review of Systems Review of Systems: All systems reviewed & are unremarkable except as noted in HPI & below no issues with bleeding at all-no epistaxis, no hematuria, no hematochezia or hematemesis Physical Exam Constitutional: WD/WN, vitals as above Eyes: PERRL, conjunctivae normal, anicteric sclerae ENMT: external ear and nose normal, oropharynx normal Neck: trachea midline, no thyromegaly Respiratory: normal respiratory effort, lungs clear to auscultation Cardiovascular: RRR, no murmur, no edema Chest (Breasts): Chest: normal inspection of chest Gastrointestinal (Abdomen): normal bowel sounds, soft, nontender, no hepatosplenomegaly Musculoskeletal: Extremities: extremities normal to inspection; no cyanosis and no clubbing Skin: no rashes, warm and dry Neurologic: moves all extremities and awake; no focal motor deficits Psychiatric: A+Ox3, euthymic affect Lymphatic: no lymphedema Results & Data Results & Data ([facility]) Vital Signs (Past 12 Hours) Vital Signs Temp Pulse Pulse Resp BP Pulse Ox 08/04/20 11:15 36.6 C 69 18 138/91 91 08/04/20 08:00 36.5 C 73 18 129/88 91 08/04/20 07:43 85 Laboratory Results 08/04/20 08/04/20 Range/Units 07:32 07:32 WBC 11.07 H (4.8-10.8) K/uL RBC 4.29 L (4.7-6.1) M/uL Hgb 13.2 L (14.0-18.0) g/dL Hct 38.5 L (42-52) % MCV 89.7 (80-100) fL MCH 30.8 (25-34) pg MCHC 34.3 (32-36) g/dL RDW Std Deviation 44.4 (36.4-46.3) fL RDW Coeff of Lissa 13.6 (11.5-14.5) % Plt Count 234 (130-400) K/uL MPV 9.9 (7.4-10.4) fL Immature Gran % (Auto) 0.3 % Neut % (Auto) 89.7 % Lymph % (Auto) 3.5 % [place] % (Auto) 5.8 % Eos % (Auto) 0.4 % Baso % (Auto) 0.3 % Neut # (Auto) 9.94 H (1.4-6.5) K/uL Lymph # (Auto) 0.39 L (1.2-3.4) K/uL [place] # (Auto) 0.64 H (0.11-0.59) K/uL Eos # (Auto) 0.04 (0-0.5) K/uL Baso # (Auto) 0.03 (0-0.2) K/uL Immature Gran # (Auto) 0.03 H (0.00-0.02) K/uL Sodium 134 L (136-145) mmol/L Potassium 4.7 (3.5-5.1) mmol/L Chloride 103 (98-107) mmol/L Carbon Dioxide 26 (21-32) mmol/L Anion Gap 5.0 (3-11) BUN 23 H (7-18) mg/dl Creatinine 0.65 D (0.6-1.4) mg/dl Est Cr Clr Drug Dosing 79.1 ml/min Est GFR ( Amer) 105.0 ml/min Est GFR (Non-Af Amer) 90.6 ml/min BUN/Creatinine Ratio 34.7 H (10-20) Glucose 100 H (70-99) mg/dl Calcium 10.0 (8.5-10.1) mg/dl Magnesium 1.9 (1.8-2.4) mg/dl PG Care Time/CCT Total # of Minutes Spent Total Time Spent with Patient: Total time spent is greater than 50% in coordination of care (as documented) at patient's floor/unit and/or counseling patient: Coding Level of Care Code 28695 Subseq Hosp Care Lvl 3 Diagnoses Pulmonary embolism I26.99 Acute cor pulmonale presence: unspecified Chronicity: unspecified Pulmonary embolism type: unspecified Prostate cancer C61 Vasovagal episode R55 Nausea R11.0 Diarrhea R19.7 GERD (gastroesophageal reflux disease) K21.00 Esophagitis bleeding: without hemorrhage Esophagitis presence: with esophagitis Hyperlipidemia E78.5 Hypertension I10 Coronary artery disease I25.10 Clavicle fracture S42.009A DVT prophylaxis Z29.9 (1) Pulmonary embolism Acute cor pulmonale presence: unspecified Chronicity: unspecified Pulmonary embolism type: unspecified Qualified Code(s): I26.99 - Other pulmonary embolism without acute cor pulmonale (2) GERD (gastroesophageal reflux disease) Esophagitis bleeding: without hemorrhage Esophagitis presence: with esophagitis Qualified Code(s): K21.00 - Gastro-esophageal reflux disease with esophagitis, without bleeding
--- NOTE | 2020-08-04 16:33 | XCELERA ---
[id number]
--- NOTE | 2020-08-04 18:40 | Electrocardiogram Report ---
Test Reason : Blood Pressure : / mmHG Vent. Rate : 075 BPM Atrial Rate : 075 BPM P-R Int : 194 ms QRS Dur : 098 ms QT Int : 364 ms P-R-T Axes : 025 -19 036 degrees QTc Int : 406 ms Normal sinus rhythm with sinus arrhythmia Right atrial enlargement Poor R wave progression, consider anterior MT vs. lead placement vs. LVH Borderline ECG When compared with ECG of 03-AUG-2020 09:25, Criteria for Inferior infarct are no longer Present Nonspecific T wave abnormality, improved in Anterior leads Confirmed by David Thompson ([id number]) on 08/04/2020 6:40:41 PM Referred By: REFERRED SELF Confirmed By:Junaid Thompson
[2020-08-04] MEDS: ROSUVASTATIN CALCIUM 20 MG TAB PO SCH (21:35)
[2020-08-04] MEDS: METOPROLOL SUCC 50MG EXT REL TAB PO SCH (21:36)
[2020-08-04] MEDS: VALSARTAN 80 MG TAB PO SCH (21:36)
[2020-08-05] MEDS: ACETAMINOPHEN 500 MG TAB PO PRN ×2 (05:28→19:52)
[2020-08-05] MEDS: CHOLECALCIFEROL 1,000 UNITS 25 MCG TAB PO SCH (08:04)
[2020-08-05] MEDS: PANTOprazole 40 MG TAB PO SCH (08:05)
[2020-08-05] MEDS: ASPIRIN 81 MG ECTAB PO SCH (08:05)
[2020-08-05 08:48] LABS: Basophils # (auto) 0.02 K/uL (0-0.2); Basophils % (auto) 0.2 %; Hemoglobin 13.2 g/dL (14.0-18.0); Immature Granulocytes # (auto) 0.04 K/uL (0.00-0.02); Immature Granulocytes % (auto) 0.4 %; Lymphocytes # (auto) 0.43 K/uL (1.2-3.4); Lymphocytes % (auto) 4.2 %; Mean Corpuscular Hemoglobin 30.3 pg (25-34); Mean Corpuscular Hgb Conc 33.8 g/dL (32-36); Mean Corpuscular Volume 89.4 fL (80-100); Mean Platelet Volume 9.4 fL (7.4-10.4); Monocytes # (auto) 0.54 K/uL (0.11-0.59); Monocytes % (auto) 5.2 %; Neutrophils # (auto) 9.17 K/uL (1.4-6.5); Platelet Count 207 K/uL (130-400); RDW Coefficient of Variation 13.4 % (11.5-14.5); RDW Standard Deviation 44.3 fL (36.4-46.3); Red Blood Count 4.36 M/uL (4.7-6.1)
[2020-08-05 09:17] LABS: Albumin Level 2.8 gm/dl (3.4-5.0); BUN Creatinine Ratio 27.6 (10-20); Calcium 9.7 mg/dl (8.5-10.1); Creatinine Clr Calc Pharmacy 74.5 ml/min; Est GFR (African American) 102.5 ml/min; Est GFR (Non-African American) 88.4 ml/min; Magnesium 1.9 mg/dl (1.8-2.4); Potassium 3.8 mmol/L (3.5-5.1)
[2020-08-05 09:25] LABS: Albumin Globulin Ratio 0.8 (0.9-2); Bilirubin,Total 0.4 mg/dl (0.2-1); Globulin 3.4 gm/dl (2.5-4.0); Total Protein 6.2 gm/dl (6.4-8.2)
[2020-08-05] MEDS: ENOXAPARIN 80 MG/0.8 ML SYR SQ SCH ×2 (09:53→19:51)
[2020-08-05] MEDS ORDERED: SODIUM CHLORIDE 0.9% 500 ML IV SCH (10:20)
[2020-08-05] MEDS ORDERED: MAGNESIUM SULFATE / D5W 1 GM/100 ML BAG IV ONE (10:30)
--- NOTE | 2020-08-05 18:43 | Hospitalist Progress Note ---
Date of Service August 05, 2020 Assessment & Plan (1) Pulmonary embolism: Presented with vasovagal episode after straining on the toilet. Noted to have initial BP of 70 systolic at home, diaphoresis. Denies any LE edema. Has traveled back and forth via plane from [place] to [place] 3 times in the last 2 m [facility]. Also received COVID vaccine 2nd dose in mid May and has felt SOB and dizzy at times since then. Has metastatic prostate CA--> certainly multiple plane rides and h/o CA provoked his VTE. Dopplers LE neg for DVT CTA Chest with large filling defect within the distal left main pulmonary artery which extends into the left lower lobe pulmonary arteries consistent with a pulmonary embolus. -PESI V, shock index 0.7, normal BNP, normal troponin -BPs low initially and responded to IVFs and may have been related to vasovagal syncope/straining with constipation rather than hypotension from PE -continue on therapeutic dosing of LMWH and will continue this given underlying cancer--> he has f/u with his Oncologist in 2 weeks and will discuss continuing on Lovenox vs could potentially convert to Xarelto -checked ECHO--> mild RV dilatation but normal RVSP, preserved LVEF, mod LVH -continue to monitor on tele, watch for signs of pulm infarct -add on incentive spiromaetry today (2) Hyponatremia: Na+ a bit lower today at 133 Likely related to recent nausea and poorer po intake gave NS IVFs x 500mL today Nausea is now resolved follow BMP in AM (3) Vasovagal episode: Occurred after straining on the toilet on day of admission. Had been taking tramadol and T#3 for back pain. Did not have syncope No events on tele, troponin neg on admission ECHO here without significant valvular disease, preserved EF No further episodes, doing well giving NS today x 500mL as below give magnesium 1 gram IV x 1 today (4) Nausea: related possibly to PE? Vs vasovagal episode now resolved with Zofran and phenergan and moving bowels regularly, not straining continue diet as tolerated No abd pains, fevers. No need for imaging of abdomen at this time, exam of abdomen benign (5) Prostate cancer: Follows with [facility]- has had external beam radiation in 1998 and Stereotactic Body Radiotherapy to the left lower lobe in 2014 at [facility] Just completed XRT to the thoracic and lumbar spine 2-3 weeks ago for bony mets With mets to lungs, chest adenopathy, and bones - Is due to follow up with them in 2 weeks - Receiving Lupron and Zometa with [facility]. 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, sacrum, and intrathecal thoracic and lumbar spine - No acute needs at this time (6) Diarrhea: was constipated and straining for a while, now off opioids and having multiple loose BMs which are now also resolving (7) GERD (gastroesophageal reflux disease): Continue omeprazole- with Casas's per chart review (8) Hyperlipidemia: continue Crestor (9) Hypertension: BPs controlled to mildly elevated now, previously hypotensive prior to arrival -continue home metoprolol, valsartan (10) Coronary artery disease: h/o CABG and stents no acute issues continue ASA, metoprolol, statin (11) Clavicle fracture: recent fall with presyncope causing Right clavicle fracture. Was in sling and now out of this, seen by PCP as outpt Some swelling and ecchymosis on exam but improved pain Advised rest of RUE for 2 more weeks then gradual return to activity tylenol prn pain (12) DVT prophylaxis: Lovenox Dispo-continued stay and if labs ok and doing well tomorrow, dc to SN[facility] at [facility] Admission and Anticipated Discharge Date Admission Date: August 03, 2020 Subjective Feeling much better today. Nausea is resolved and he is eating. has some OREILLY but no CP. Had a normal BM this AM, no blood. No bleeding from anywhere. He ambulated with PT today. Tele with NSR , PVCs, rates 80-90s Review of Systems Review of Systems: All systems reviewed & are unremarkable except as noted in HPI & below Physical Exam Constitutional: WD/WN, vitals as above Eyes: + anicteric sclerae Neck: trachea midline, no thyromegaly Respiratory: normal respiratory effort, lungs clear to auscultation Auscultation: + diminished lung sounds (at left base) Cardiovascular: RRR, no murmur, no edema Chest (Breasts): Chest: normal inspection of chest Gastrointestinal (Abdomen): normal bowel sounds, soft, nontender, no hepatosplenomegaly Musculoskeletal: Extremities: + extremities abnormal to inspection (Rt clavicle with mild edema and ecchymosis distal), no cyanosis and no clubbing Skin: no rashes, warm and dry Neurologic: moves all extremities and awake; no focal motor deficits Psychiatric: A+Ox3, euthymic affect Lymphatic: no lymphedema Results & Data Results & Data ([facility]) Vital Signs (Past 12 Hours) Vital Signs Temp Pulse Pulse Resp BP BP Pulse Ox 08/05/20 15:23 36.9 C 86 20 116/76 91 08/05/20 15:06 83 08/05/20 12:15 36.5 C 85 18 114/80 96 08/05/20 08:53 74 08/05/20 07:41 37.0 C 85 20 130/89 94 Laboratory Results 08/05/20 08/05/20 08/05/20 Range/Units Unknown Unknown 08:38 WBC (4.8-10.8) K/uL RBC (4.7-6.1) M/uL Hgb (14.0-18.0) g/dL Hct (42-52) % MCV (80-100) fL MCH (25-34) pg MCHC (32-36) g/dL RDW Std Deviation (36.4-46.3) fL RDW Coeff of Lissa (11.5-14.5) % Plt Count (130-400) K/uL MPV (7.4-10.4) fL Immature Gran % (Auto) % Neut % (Auto) % Lymph % (Auto) % [place] % (Auto) % Eos % (Auto) % Baso % (Auto) % Neut # (Auto) (1.4-6.5) K/uL Lymph # (Auto) (1.2-3.4) K/uL [place] # (Auto) (0.11-0.59) K/uL Eos # (Auto) (0-0.5) K/uL Baso # (Auto) (0-0.2) K/uL Immature Gran # (Auto) (0.00-0.02) K/uL Sodium 133 L (136-145) mmol/L Potassium 3.8 D (3.5-5.1) mmol/L Chloride 102 (98-107) mmol/L Carbon Dioxide 24 (21-32) mmol/L Anion Gap 7.0 (3-11) BUN 19 H (7-18) mg/dl Creatinine 0.69 (0.6-1.4) mg/dl Est Cr Clr Drug Dosing 74.5 ml/min Est GFR ( Amer) 102.5 ml/min Est GFR (Non-Af Amer) 88.4 ml/min BUN/Creatinine Ratio 27.6 H (10-20) Glucose 150 H (70-99) mg/dl Calcium 9.7 (8.5-10.1) mg/dl Magnesium 1.9 (1.8-2.4) mg/dl Total Bilirubin 0.4 (0.2-1) mg/dl AST 19 (15-37) U/L ALT 19 (12-78) U/L Alkaline Phosphatase 85 (45-117) U/L Total Protein 6.2 L (6.4-8.2) gm/dl Albumin 2.8 L (3.4-5.0) gm/dl Globulin 3.4 (2.5-4.0) gm/dl Albumin/Globulin Ratio 0.8 L (0.9-2) COVID-19 Eval Order Covid19 IDNow atMWVC SARS-CoV-2, RNA, NAAT NEGATIVE (NEGATIVE) 08/05/20 Range/Units 08:38 WBC 10.30 (4.8-10.8) K/uL RBC 4.36 L (4.7-6.1) M/uL Hgb 13.2 L (14.0-18.0) g/dL Hct 39.0 L (42-52) % MCV 89.4 (80-100) fL MCH 30.3 (25-34) pg MCHC 33.8 (32-36) g/dL RDW Std Deviation 44.3 (36.4-46.3) fL RDW Coeff of Lissa 13.4 (11.5-14.5) % Plt Count 207 (130-400) K/uL MPV 9.4 (7.4-10.4) fL Immature Gran % (Auto) 0.4 % Neut % (Auto) 89.0 % Lymph % (Auto) 4.2 % [place] % (Auto) 5.2 % Eos % (Auto) 1.0 % Baso % (Auto) 0.2 % Neut # (Auto) 9.17 H (1.4-6.5) K/uL Lymph # (Auto) 0.43 L (1.2-3.4) K/uL [place] # (Auto) 0.54 (0.11-0.59) K/uL Eos # (Auto) 0.10 (0-0.5) K/uL Baso # (Auto) 0.02 (0-0.2) K/uL Immature Gran # (Auto) 0.04 H (0.00-0.02) K/uL Sodium (136-145) mmol/L Potassium (3.5-5.1) mmol/L Chloride (98-107) mmol/L Carbon Dioxide (21-32) mmol/L Anion Gap (3-11) BUN (7-18) mg/dl Creatinine (0.6-1.4) mg/dl Est Cr Clr Drug Dosing ml/min Est GFR ( Amer) ml/min Est GFR (Non-Af Amer) ml/min BUN/Creatinine Ratio (10-20) Glucose (70-99) mg/dl Calcium (8.5-10.1) mg/dl Magnesium (1.8-2.4) mg/dl Total Bilirubin (0.2-1) mg/dl AST (15-37) U/L ALT (12-78) U/L Alkaline Phosphatase (45-117) U/L Total Protein (6.4-8.2) gm/dl Albumin (3.4-5.0) gm/dl Globulin (2.5-4.0) gm/dl Albumin/Globulin Ratio (0.9-2) COVID-19 Eval Order SARS-CoV-2, RNA, NAAT (NEGATIVE) PG Care Time/CCT Total # of Minutes Spent Total Time Spent with Patient: Total time spent is greater than 50% in coordination of care (as documented) at patient's floor/unit and/or counseling patient: Coding Level of Care Code 37177 Subseq Hosp Care Lvl 3 Diagnoses Pulmonary embolism I26.99 Acute cor pulmonale presence: unspecified Chronicity: unspecified Pulmonary embolism type: unspecified Hyponatremia E87.1 Vasovagal episode R55 Nausea R11.0 Prostate cancer C61 Diarrhea R19.7 GERD (gastroesophageal reflux disease) K21.00 Esophagitis bleeding: without hemorrhage Esophagitis presence: with esophagitis Hyperlipidemia E78.5 Hypertension I10 Coronary artery disease I25.10 Clavicle fracture S42.009A DVT prophylaxis Z29.9 (1) Pulmonary embolism Acute cor pulmonale presence: unspecified Chronicity: unspecified Pulmonary embolism type: unspecified Qualified Code(s): I26.99 - Other pulmonary embolism without acute cor pulmonale (2) GERD (gastroesophageal reflux disease) Esophagitis bleeding: without hemorrhage Esophagitis presence: with esophagitis Qualified Code(s): K21.00 - Gastro-esophageal reflux disease with esophagitis, without bleeding
[2020-08-05] MEDS: METOPROLOL SUCC 50MG EXT REL TAB PO SCH (19:52)
[2020-08-05] MEDS: ROSUVASTATIN CALCIUM 20 MG TAB PO SCH (19:53)
[2020-08-05] MEDS: VALSARTAN 80 MG TAB PO SCH (19:54)
[2020-08-05] MEDS: ONDANSETRON INJ 2 MG/ML 2 ML VIAL IV PRN (21:21)
[2020-08-05] MEDS: PROMETHAZINE HCL 6.25 MG in SODIUM CHLORIDE 0.9% 50 ML IV PRN (23:29)
[2020-08-06] MEDS: PROMETHAZINE HCL 6.25 MG in SODIUM CHLORIDE 0.9% 50 ML IV PRN (05:55)
[2020-08-06 07:05] LABS: Basophils # (auto) 0.03 K/uL (0-0.2); Basophils % (auto) 0.4 %; Eosinophils # (auto) 0.11 K/uL (0-0.5); Eosinophils % (auto) 1.4 %; Hematocrit (blood only) 40.7 % (42-52); Hemoglobin 13.7 g/dL (14.0-18.0); Immature Granulocytes # (auto) 0.03 K/uL (0.00-0.02); Immature Granulocytes % (auto) 0.4 %; Lymphocytes # (auto) 0.27 K/uL (1.2-3.4); Lymphocytes % (auto) 3.4 %; Mean Corpuscular Hemoglobin 30.4 pg (25-34); Mean Corpuscular Hgb Conc 33.7 g/dL (32-36); Mean Corpuscular Volume 90.2 fL (80-100); Mean Platelet Volume 9.8 fL (7.4-10.4); Monocytes # (auto) 0.74 K/uL (0.11-0.59); Monocytes % (auto) 9.4 %; Neutrophils # (auto) 6.73 K/uL (1.4-6.5); Platelet Count 219 K/uL (130-400); RDW Coefficient of Variation 13.4 % (11.5-14.5); RDW Standard Deviation 44.4 fL (36.4-46.3); Red Blood Count 4.51 M/uL (4.7-6.1); White Blood Count 7.91 K/uL (4.8-10.8)
[2020-08-06] MEDS: ASPIRIN 81 MG ECTAB PO SCH (07:43)
[2020-08-06] MEDS: PANTOprazole 40 MG TAB PO SCH (07:43)
[2020-08-06 07:44] LABS: BUN Creatinine Ratio 25.8 (10-20); Calcium 9.1 mg/dl (8.5-10.1); Creatinine Clr Calc Pharmacy 68.5 ml/min; Est GFR (Non-African American) 85.4 ml/min; Magnesium 2.2 mg/dl (1.8-2.4); Potassium 4.7 mmol/L (3.5-5.1)
[2020-08-06] MEDS: CHOLECALCIFEROL 1,000 UNITS 25 MCG TAB PO SCH (07:44)
[2020-08-06 08:06] VITALS: PULSE 84; TEMP 98.4; O2SAT 94
[2020-08-06] MEDS: ENOXAPARIN 80 MG/0.8 ML SYR SQ SCH (09:28)
[2020-08-06 11:10] VITALS: BP 116/76
--- NOTE | 2020-08-06 11:10 | Discharge Summary ---
Date of Service August 06, 2020 Admission HPI Per Admitting Provider 84 YOM with past medical history of prostate cancer (~20 years) with metastatic disease to the lung and spine (this is followed by [facility]), HTN, HLD, syncope, dyspnea, 1v CABG, CAD with one stent, Casas esophagus. Patient comes to the emergency room today for evaluation of dyspnea associated with diaphoresis and hypotension at home. Patient got up this morning for breakfast had a boost energy drink and shortly there after he started not feeling well. He got a sharp pain in his left groin area, that was then associated with onset of voluminous diarrhea that was brown and watery, this progressed to him being dyspneic and pale. He went and laid down on the bed and his girlfriend reports that he was very pale looking and diaphoretic. They checked his BP at home and they reported it in the 70s. As the patient laid in the bed he said he started to feel better within a couple of minutes. He did not fell any other symptoms when he got up and walked to the car to come to the [facility]. In the emergency room he received 1 liter of crystalloid for BP 94/51 and had a CTA of the chest performed- this demonstrated a distal left main pulmonary embolism. He will be admitted to continue workup as well as start on anticoagulation. He will be started initially on LMWH q12. Will obtain Doppler of his bilateral lower extremities and place on telemetry. He is hemodynamically stable at this time. PESI of V, no troponin elevation and BNP of 187 and lactate of 2.0. The patient endorses that his dyspnea has been ongoing since April after flying back and forth from [place] to get his Covid Vaccines, and after the second Moderna vaccine he noticed dyspnea that has not gone away, he still gets dyspneic when walking approximally 25 feet. He has had 2 syncopal episodes since that time as well. One of these occurred in earlier in the month and was seen down in [place] where he had a CT of the chest done, which did not show evidence of a pulmonary embolism at that time. he also had a myocardial perfusion scan performed with no defects. Had an ECHO performed with EF 60-65% with grade 1 diastolic dysfunction. Mild mitral regurgitation and mild aortic sclerosis without stenosis. the other one occurred about two weeks ago resulting in a clavicle fracture when he got dizzy and light headed standing up from sitting position. Principal Diagnosis Pulmonary embolism Discharge Exam Constitutional WD/WN, vitals as above Eyes + anicteric sclerae ENMT Mouth: + oropharynx abnormality (white exudate on tongue) Neck trachea midline, no thyromegaly Respiratory normal respiratory effort, lungs clear to auscultation Auscultation: + diminished lung sounds (at left base) Cardiovascular RRR, no murmur, no edema Chest (Breasts) Chest: normal inspection of chest Gastrointestinal (Abdomen) normal bowel sounds, soft, nontender, no hepatosplenomegaly Musculoskeletal Extremities: + extremities abnormal to inspection (Rt clavicle with mild edema and ecchymosis distal), no cyanosis and no clubbing Skin no rashes, warm and dry Neurologic moves all extremities and awake; no focal motor deficits Psychiatric A+Ox3, euthymic affect Lymphatic no lymphedema Discharge Data Allergies Allergy/AdvReac Type Severity Reaction Status Date / Time No Known Allergies Allergy Verified 08/03/20 10:46 Consultations 08/03/20 13:42 ED Decision to Admit Stat Ordered Studies 08/03/20 10:10 CT angio chest PE protocol Stat 08/03/20 16:06 US venous doppler LE BI Routine Chest X-Ray 08/03/20 09:34 SINGLE VIEW CHEST CLINICAL HISTORY: Generalized weakness. FINDINGS: An AP, portable, upright chest radiograph is compared to study dated 07/09/2020 and correlated with chest CT dated 06/22/2014 and PET/CT dated 07/29/2019. The patient is status post midline sternotomy. The heart is mildly enlarged noting atherosclerotic calcification of the thoracic aorta. The pulmonary vasculature is noncongested. There is volume loss in the left lung with elevation of the left hemidiaphragm. There are 2 nodular densities in the right midlung measuring up to 1.8 cm. No airspace consolidation is seen typical for pneumonia and there is no large pleural effusion. No pneumothorax is seen. The skeletal structures are osteopenic. The bony thorax is grossly intact. A right shoulder arthroplasty is in place. Advanced arthritic change is seen in the left shoulder. IMPRESSION: 1. There is volume loss in the left lung with elevation of the left hemidiaphragm. This could be on a postoperative basis or could represent left lower lobe atelectasis. Clinical correlation will be required. 2. There are at least 2 nodular lesions identified in the right lung as above. 3. There is no airspace consolidation typical for pneumonia or large pleural effusion. ACT 112: Negative or not required by law. Electronically signed by: Sushant Rosado M.D. 08/03/2020 10:07 AM Chest CTA 08/03/20 10:10 CHEST CTA for PULMONARY ARTERIES CT DOSE: 559.44 mGycm HISTORY: Shortness of breath. Cough. TECHNIQUE: Multiaxial CT images of the chest were performed following the intravenous administration of contrast to evaluate the pulmonary arteries. Maximal intensity projection images were also obtained. A dose lowering technique was utilized adhering to the principles of ALARA. COMPARISON STUDY: PET CT 07/29/2019. Chest CT 06/22/2014. FINDINGS: Normal caliber thoracic aorta with no evidence for dissection. The heart is borderline enlarged. There are poststernotomy changes. Small left pleural effusion. There is a large filling defects within the distal left main pulmonary artery and extending into the left lower lobe pulmonary arteries consistent with a pulmonary embolus. The right main pulmonary artery is patent. The majority of the segmental and subsegmental pulmonary arteries are nondiagno stic due to the respiratory motion. Limited views of the upper abdomen demonstrate a normal spleen and adrenal glands. There are multiple left renal calculi. A 6 mm hypodense lesion within the left hepatic lobe remains stable. Normal esophagus. Left anterior mediastinal lymphadenopathy/mass is again noted measuring up to 3.1 cm. There is mild left hilar lymphadenopathy. No suspicious lytic or blastic osseous lesions. There is a right shoulder prosthesis. No pneumothorax. Increase in size and number of multiple bilateral pulmonary nodules/masses. This likely represents metastatic disease. Dominant mass within the left lower lobe measures 4.3 cm, previous measuring 3.5 cm. Consolidation at the base of the left lower lobe. IMPRESSION: 1. Large filling defect within the distal left main pulmonary artery which extends into the left lower lobe pulmonary arteries consistent with a pulmonary embolus. 2. Increase in size and number of the multiple bilateral pulmonary nodules/masses consistent with metastatic disease. 3. Small left pleural effusion. 4. Left anterior mediastinal lymphadenopathy/mass is again noted. There is also mild left hilar lymphadenopathy. This also consistent with metastatic disease. 5. Patchy densities at the left lung base are nonspecific and could represent atelectasis or pneumonia. ACT 112: Negative or not required by law. Electronically signed by: Nathanael Ribeiro M.D. 08/03/2020 1:25 PM Venous Doppler Study 08/03/20 16:06 BILATERAL LOWER EXTREMITY VENOUS DOPPLER CLINICAL HISTORY: Rule out DVT following acute PE COMPARISON STUDY: No previous studies for comparison. TECHNIQUE: Sonography of the deep venous system of the bilateral lower extremities was performed. Compression and augmentation were evaluated. FINDINGS: The bilateral common femoral, superficial femoral and popliteal veins were compressible. Augmentation was normal. Flow was shown within the deep calf vessels. IMPRESSION: No evidence of deep venous thrombus within the bilateral lower extremities. ACT 112: Negative or not required by law. Electronically signed by: eD Mejia M.D. 08/03/2020 5:14 PM ECHO-mild RV dilation, mod LVH, preserved EF Hospital Course (1) Pulmonary embolism: Presented with vasovagal episode after straining on the toilet straining to have a BM after being constipated-then had a lot of loose stool. Noted to have initial BP of 70 systolic at home, diaphoresis. Denies any LE edema. CTA Chest with large filling defect within the distal left main pulmonary artery which extends into the left lower lobe pulmonary arteries consistent with a pulmonary embolus. Dopplers LE neg for DVT Has traveled back and forth via plane from [place] to [place] 3 times in the last 2 months. Also received COVID vaccine 2nd dose in mid May and has felt SOB and dizzy at times since then. Has metastatic prostate CA--> certainly multiple plane rides and h/o CA provoked his VTE. -PESI V, shock index 0.7, normal BNP, normal troponin -BPs low initially and responded to IVFs and may have been related to vasovagal syncope/straining with constipation rather than hypotension from PE -continue on therapeutic dosing of LMWH and will continue this given underlying cancer--> he has f/u with his Oncologist in 2 weeks and will discuss continuing on Lovenox vs could potentially convert to Xarelto -checked ECHO--> mild RV dilatation but normal RVSP, preserved LVEF, mod LVH -no events on tele, no signs of pulm infarct or pneumonia -not hypoxic, no tachycardia, remained hemodynamically stable throughout rest of hospitalization -continue on incentive spirometry Stable for discharge to rehab (2) Hyponatremia: Na+ a bit low at 133, improved to 134 on day of discharge after IVFs Perhaps some SIADH from nausea Likely related to recent nausea and poorer po intake follow BMP in 2-3 days encouraged po intake and see nausea below (3) Vasovagal episode: Occurred after straining on the toilet on day of admission. Had been taking tramadol and T#3 for back pain which likely caused constipation. Did not have syncope No events on tele, troponin neg on admission ECHO here without significant valvular disease, preserved EF No further episodes, doing well (4) Nausea: Ongoing but much improved since admission Possibly secondary to radiation side effect, recent constipation, tramadol use? now improved with Zofran and phenergan and moving bowels regularly, not straining continue diet as tolerated No abd pains, fevers. No need for imaging of abdomen at this time, exam of abdomen benign -increase Prilosec to 40mg po bid -treating thrush of mouth and perhaps has esophageal candidiasis? -if not improving, recommend f/u with GI (5) Prostate cancer: Follows with [facility]- has had external beam radiation in 1998 and Stereotactic Body Radiotherapy to the left lower lobe in 2014 at [facility] Just completed XRT to the thoracic and lumbar spine 2-3 weeks ago for bony mets With mets to lungs, chest adenopathy, and bones - Is due to follow up with them in 2 weeks - Receiving Lupron and Zometa with [facility]. 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, sacrum, and intrathecal thoracic and lumbar spine - No acute needs at this time (6) Diarrhea: was constipated and straining for a while, now off opioids and had multiple loose BMs which are now also resolved (7) GERD (gastroesophageal reflux disease): Continue omeprazole- with Casas's per chart review (8) Hyperlipidemia: continue Crestor (9) Hypertension: BPs controlled to mildly elevated now, previously hypotensive prior to arrival -continue home metoprolol, valsartan (10) Coronary artery disease: h/o CABG and stents no acute issues continue ASA, metoprolol, statin (11) Clavicle fracture: recent fall with presyncope causing Right clavicle fracture. Was in sling and now out of this, seen by PCP as outpt Some swelling and ecchymosis on exam but improved pain Advised rest of RUE for 2 more weeks then gradual return to activity tylenol prn pain (12) Thrush, oral: start Nystatin swish/swallow x 14 day course (13) DVT prophylaxis: Lovenox Dispo-stable for dc to SNF at [facility] Total Time Total Time Spent Total Time Spent (In Minutes): 35 min Total Time Includes: Examination of the Patient, Discharge Planning and Medication Reconciliation Discharge Plan Discharge Items Patient Disposition: Transfer Longterm Fac Reason For Visit: PULMONARY EMBOLISM Discharge Diagnosis: Pulmonary embolism, Nausea Condition on Discharge: Fair Activity: As commented below Lifting: Gradually increase as tolerated Bathing: No limitations Exercise/Sports: Gradually increase as tolerated Weightbearing: Full weightbearing Weightbearing Comment: Right upper extremity use as tolerated Non-emergency contact: Primary Care Provider Call non-emergency contact if: you have any medication questions and your symptoms worsen Follow-up/Referrals: Shadi Bolivar MD [Primary Care Provider] - Diet: Heart Healthy Addtl Attending Provider Instructions: Continue on the Lovenox injections for your PE indefinitely. Please follow up with your Oncologist as planned in 2 weeks-at that time, you can discuss the possibility of converting to an oral blood thinner such as Xarelto. For your nausea, please continue Zofran or phenergan as needed and try to stay hydrated. This may be residual effect from recent constipation and opioid use, but also could be a side effect of your recent radiation therapy. You were also placed on Nystatin for thrush in your mouth. If your nausea persists, please follow up with a GI specialist to discuss a possible scope to take a look into your stomach. Your Prilosec was also increased to twice a day. Please check a CBC and BMP in 2-3 days to ensure hemoglobin stable and hyponatremia has completely resolved. Pending Studies at Discharge: No Stand-Alone Forms: My [facility] Skilled Items Patient informed of condition?: Yes DNR: Yes Discharge Level of Care: Skilled Communicable Disease: No Discharge Prognosis: Improving Lines: None Urinary Catheter: No Medications and DC Order Prescriptions: New enoxaparin [Lovenox] 80 mg/0.8 mL Syringe 70 mg subcut Q12H 30 Days Qty: 42 RF: 0 acetaminophen 500 mg Tablet 1,000 mg PO Q6H PRN (Reason: pain) Qty: 30 RF: 0 aspirin 81 mg Tablet,Delayed Release (Dr/Ec) 81 mg PO QAM Qty: 30 RF: 0 ondansetron 4 mg tablet,disintegrating 4 mg PO Q8H PRN (Reason: nausea and vomiting) 3 Days Qty: 9 RF: 0 nystatin 100,000 unit/mL suspension 5 ml PO QID 14 Days Qty: 280 RF: 0 promethazine 12.5 mg tablet 12.5 mg PO TID PRN (Reason: nausea) Qty: 10 RF: 0 Continued rosuvastatin 40 mg tablet 40 mg PO HS RF: 0 nitroglycerin 0.4 mg tablet, sublingual 0.4 mg sublingual Q5M PRN (Reason: Chest Pain) RF: 0 Lupron Depot (6 Month) 45 mg syringe kit 45 mg IM Q24W RF: 0 zoledronic [id number] 4 mg/100 mL piggyback 4 mg IV Q24W RF: 0 metoprolol succinate 50 mg tablet extended release 24 hr 50 mg PO HS RF: 0 acyclovir 400 mg Tablet 400 mg PO QAM RF: 0 cholecalciferol (vitamin D3) [Vitamin D3] 50 mcg (2,000 unit) Capsule 50 mcg PO QAM RF: 0 coQ10 (ubiquinol) 200 mg Capsule 200 mg PO QAM RF: 0 PreserVision AREDS-2 250-90-40-1 mg Capsule 1 tab PO BID RF: 0 Cbd Oil 50 ml PO Q12 RF: 0 Inj For Wet Macular Degenerate 1 dose INJ Q24W RF: 0 Quercetin 500 mg PO DAILY RF: 0 Turmeric Forte 2 tab PO DAILY RF: 0 valsartan 80 mg tablet 80 mg PO PM RF: 0 Changed omeprazole 40 mg capsule,delayed release(DR/EC) 40 mg PO BID Qty: 60 RF: 0 Discontinued tramadol 50 mg tablet 50 mg PO QID PRN (Reason: Pain) RF: 0 Discharge Orders: Discharge Order (Routine); Ordered 08/06/20 Ordered By: Cassandra Montalvo Admission Data Admit Date/Time: 08/03/20 14:50 Attending Provider: Cassandra Montalvo Admit Provider: Maxim Connor Primary Care Provider: Shadi Bolivar Other Providers: Franklin Navarro ; [facility] Coding Level of Care Code D/C Day Management >30 mins Diagnoses Pulmonary embolism I26.99 Acute cor pulmonale presence: unspecified Chronicity: unspecified Pulmonary embolism type: unspecified Hyponatremia E87.1 Vasovagal episode R55 Nausea R11.0 Prostate cancer C61 Diarrhea R19.7 GERD (gastroesophageal reflux disease) K21.00 Esophagitis bleeding: without hemorrhage Esophagitis presence: with esophagitis Hyperlipidemia E78.5 Hypertension I10 Coronary artery disease I25.10 Clavicle fracture S42.009A Thrush, oral B37.0 DVT prophylaxis Z29.9
== END 2020-08-06 11:15 ==
LOC: ED 08:50 → SUATTDRO 14:50 → 2W 14:50

== ENCOUNTER 2020-09-28 06:17 | Observation (INO) ==
[2020-09-28] MEDS ORDERED: ONDANSETRON INJ 2 MG/ML 2 ML VIAL IV STA (06:40)
[2020-09-28] MEDS ORDERED: ACETAMINOPHEN 1,000 MG/100 ML VIAL IV STA (06:40)
[2020-09-28] MEDS: HYDROmorphone INJ 0.5 MG/0.5 ML SYR IV PRN ×4 (06:51→21:02)
[2020-09-28 06:57] LABS: Basophils # (auto) 0.03 K/uL (0-0.2); Basophils % (auto) 0.3 %; Eosinophils # (auto) 0.23 K/uL (0-0.5); Eosinophils % (auto) 2.2 %; Hematocrit (blood only) 42.2 % (42-52); Immature Granulocytes # (auto) 0.02 K/uL (0.00-0.02); Immature Granulocytes % (auto) 0.2 %; Lymphocytes # (auto) 1.56 K/uL (1.2-3.4); Lymphocytes % (auto) 14.9 %; Mean Corpuscular Hemoglobin 29.9 pg (25-34); Mean Corpuscular Hgb Conc 33.2 g/dL (32-36); Mean Corpuscular Volume 90.2 fL (80-100); Mean Platelet Volume 9.8 fL (7.4-10.4); Monocytes # (auto) 0.76 K/uL (0.11-0.59); Monocytes % (auto) 7.2 %; Neutrophils % (auto) 75.2 %; Platelet Count 252 K/uL (130-400); RDW Coefficient of Variation 14.7 % (11.5-14.5); RDW Standard Deviation 48.4 fL (36.4-46.3); Red Blood Count 4.68 M/uL (4.7-6.1)
--- NOTE | 2020-09-28 06:57 | Emergency Department Note ---
Impression & Plan Acute right flank pain, Elevated liver enzymes ED Provider Note NAME: ZULEMA JONES AGE: 84 SEX: M : 1935 ARRIVES VIA: Walk-In INFORMANT: Patient, son ED PROVIDER(S): Clark Walker MD CHIEF COMPLAINT: Rt sided flank pain HPI: This is an 84-year-old male who presents emergency department complaining of right-sided flank pain. The patient reports an aching sensation that woke him up at 4 this morning. The patient has not been able to get his pain under control. He reports nothing makes the pain better or worse. He describes the pain as a sharp stabbing sensation with radiation into the groin. The patient took tramadol without any relief of the pain. The patient has been vomiting. The patient's son reports that the patient has a history of kidney stones as seen on the recent CAT scan. He also has a history of metastatic cancer and is on Xarelto. ROS: See above HPI for pertinent positives & negatives. A total of 10 systems reviewed and were otherwise negative. PAST MEDICAL HISTORY: See Below PAST SURGICAL HISTORY: See Below FAMILY HISTORY: See Below SOCIAL HISTORY: See Below HOME MEDICATIONS: See Below ALLERGIES: See Below VITALS: See Below PHYSICAL EXAMINATION: VITAL SIGNS - Vital signs and nursing notes were reviewed. GENERAL - 84-year-old male appearing stated age who is in moderate distress. Diaphoretic, rocking in pain SKIN - Without rashes. HEAD - NC/AT. EYES - PERRL with EOMI bilaterally. Sclera anicteric. Palpebral conjunctiva p ink and moist with no injection noted. EARS - No deformities of external structures noted on gross examination bilaterally. NOSE - Midline and without cyanosis. No epistaxis or purulent drainage noted. Septum midline without deviation or septal hematoma noted. MOUTH/OROPHARYNX - Without perioral cyanosis. Buccal mucosa pink and moist and without leukoplakia. Tongue midline with equal elevation of palate bilaterally. No tonsillar hypertrophy, erythema, or exudates noted. NECK - Neck with FROM. Supple to palpation. No nuchal rigidity. LUNGS - Chest wall symmetric without accessory muscle use, intercostals retractions, or central cyanosis. Normal vesicular breath sounds CTA B/L. No wheezes, rales, or rhonchi appreciated. CARDIAC - RRR with S1/S2. No murmur, rubs, or gallops appreciated. ABDOMEN - Abdominal contour or visible masses. BS normoactive all four quadrants. No tenderness, palpable masses, hepatosplenomegaly, or ascites noted. EXTREMITIES - No clubbing or peripheral cyanosis. No pretibial edema present. +3/5 radial, posterior tibial, and dorsalis pedis pulses palpated throughout. +5/5 strength noted in UE/LE bilaterally. NEUROLOGIC - Cranial nerves II through XII grossly intact. Sensory intact to light touch throughout. Patellar reflexes +2/4. PSYCH - A&Ox3 and cooperates fully with examiner. Pt is very pleasant and interacts well with examiner. MEDICAL DECISION MAKING: Patient was seen and evaluated as above in room C6. Review was performed of nursing notes and vital signs. I did review pertinent previous visits and patient history. After obtaining a thorough history and physical examination the above work up was performed. Is an 84-year-old male who presents emergency department complaining of right- sided flank pain. CAT scan does not show any evidence of a kidney stone however the patient's liver enzymes are increasing. I therefore gave the patient the option of being discharged with close follow-up with his cancer doctor or being admitted for better pain control. The patient and family would like to be admitted. He was given Dilaudid here for his pain I did discuss the case with the hospitalist service who did agree to meet the patient. An order was placed for continuous cardiac monitoring. The monitor shows a rate of 76 with Normal SInus rhythm. The patient was evaluated during a period of high volume and high acuity during the global COVID-19 pandemic, and that diagnosis was suspected/considered upon their initial presentation. Their evaluation, treatment and testing was consistent with current guidelines for patients who present with complaints or symptoms that may be related to COVID-19. Patient was seen while provider was wearing PPE. Triage Nursing notes reviewed. Prior medical records reviewed Vital Signs: reviewed and remarkable for no significant abnormalities Differential diagnosis: Appendicitis, testicular torsion, infections, diverticulitis, UTI, obstruction, mesenteric ischemia, aortic pathology, inflammatory bowel disease, renal colic, PUD, pancreatitis, biliary pathology, hernia, volvulus, constipation, as well as other pathologies. ER treatment provided: See below Diagnostics interpreted by me: ECG: EKG shows a normal sinus rhythm left atrial enlargement left axis deviat ion anterior lateral infarct QTC is 459 ventricular rate is 80, EKG is compared to 08/25/2020 no significant changes noted Laboratory studies: As stated above and show below. 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 Scoliosis Unstable angina Vasovagal episode Surgical History H/O blepharoplasty H/O cystoscopy H/O heart artery stent H/O laminectomy H/O rotator cuff surgery Right H/O vasectomy History of bronchoscopy History of cardiac cath History of cataract surgery History of cryosurgery For recurrent prostate cancer August 2005 History of surgery Bronchoscopy, Right thoracoscopy with lower lobectomy and thoracic lymphadenectomy - metastatic prostate cancer 06/09/13 Hx of CABG Hx of tonsillectomy S/P angioplasty with stent Family History Mother , 95yo Macular degeneration Natural with unknown cause Father , 87yo Prostate cancer Brother Esophageal cancer Brother Prostate cancer Sister No problems noted. Son No problems noted. Daughter No problems noted. 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 [employer]; Other Information That Helps Us Care for You: No Feels Safe at Home: Yes Safety Concerns: Feels Safe At This Time caffeine: Yes (1 cup/day) during the past year weight has: remained stable Assistive Devices: Hearing Aid - Bilateral Allergies Allergies Allergy/AdvReac Type Severity Reaction Status Date / Time amlodipine AdvReac Intermediate Confusion Verified 09/28/20 16:28 Home Meds Home Medications Medication Instructions Recorded Confirmed nitroglycerin 0.4 mg sublingual 0.4 mg SUBLINGUAL Q5M PRN 07/08/20 09/28/20 tablet rosuvastatin 40 mg tablet 40 mg PO HS 07/08/20 09/28/20 acyclovir 400 mg tablet 400 mg PO QAM 07/09/20 09/28/20 cholecalciferol (vitamin D3) 50 50 mcg PO QAM 07/09/20 09/28/20 mcg (2,000 unit) capsule (Vitamin D3) coQ10 (ubiquinol) 200 mg capsule 400 mg PO QAM 07/09/20 09/28/20 metoprolol succinate 50 mg 50 mg PO HS 07/09/20 09/28/20 tablet,extended release 24 hr vit C 250 mg-vit E 90 mg-zinc 40 1 tab PO DAILY 07/09/20 09/28/20 mg-copper 1 [id number] capsule (PreserVision AREDS-2) aspirin 81 mg tablet,delayed 81 mg PO [id number] 08/25/20 09/28/20 release dextran 70-hypromellose eye drops 1 drp OPHTHALMIC (EYE) TID 08/25/20 09/28/20 (Artificial Tears([id number])) leuprolide 7.5 mg intramuscular 0 mg IM UD 08/25/20 09/28/20 syringe kit (Lupron Depot) omeprazole 40 mg capsule,delayed 40 mg PO DAILY 08/25/20 09/28/20 release rivaroxaban 20 mg tablet (Xarelto) 20 mg PO DAILY 08/25/20 09/28/20 dexamethasone 0.75 mg tablet 75 mg PO TID 09/28/20 09/28/20 penicillin V potassium 500 mg 500 mg PO Q6 09/28/20 09/28/20 tablet Previous Rx's Medication Instructions Recorded albuterol sulfate 90 mcg/actuation 1 inh INHALATION QID PRN #18 g 09/16/20 aerosol inhaler benzonatate 100 mg capsule 100 mg PO BID PRN #30 cap 09/16/20 (Suzanne Grier) Results & Data (ED) Vital Signs Vital Signs - 24 hr 09/28/20 06:25 Temperature 36.0 C L Temperature Source Temporal Artery Scan Pulse Rate 76 Respiratory Rate 18 Respiratory Depth Normal Blood Pressure 117/85 Blood Pressure Mean 95 Pulse Oximetry 93 Oxygen Delivery Method Room Air Sepsis Recent Fever Within 48 Hours No Sepsis New/Unexplained Change in Mental Status N/A Sepsis Action Taken by Nursing No Action Required Home Medications Current Medication List: was personally reviewed by me Laboratory Data Attestation: I reviewed the patient's lab results. Result diagrams: 09/28/20 06:46 09/29/20 06:12 Lab Results 09/28/20 09/28/20 09/28/20 Range/Units 06:46 06:46 09:08 WBC 10.50 (4.8-10.8) K/uL RBC 4.68 L (4.7-6.1) M/uL Hgb 14.0 (14.0-18.0) g/dL Hct 42.2 (42-52) % MCV 90.2 (80-100) fL MCH 29.9 (25-34) pg MCHC 33.2 (32-36) g/dL RDW Std Deviation 48.4 H (36.4-46.3) fL RDW Coeff of Lissa 14.7 H (11.5-14.5) % Plt Count 252 (130-400) K/uL MPV 9.8 (7.4-10.4) fL Immature Gran % (Auto) 0.2 % Neut % (Auto) 75.2 % Lymph % (Auto) 14.9 % Meagher % (Auto) 7.2 % Eos % (Auto) 2.2 % Baso % (Auto) 0.3 % Neut # (Auto) 7.90 H (1.4-6.5) K/uL Lymph # (Auto) 1.56 (1.2-3.4) K/uL Meagher # (Auto) 0.76 H (0.11-0.59) K/uL Eos # (Auto) 0.23 (0-0.5) K/uL Baso # (Auto) 0.03 (0-0.2) K/uL Immature Gran # (Auto) 0.02 (0.00-0.02) K/uL Sodium 133 L (136-145) mmol/L Potassium 3.7 (3.5-5.1) mmol/L Chloride 100 (98-107) mmol/L Carbon Dioxide 26 (21-32) mmol/L Anion Gap 7.0 (3-11) BUN 26 H (7-18) mg/dl Creatinine 1.59 H (0.6-1.4) mg/dl Est Cr Clr Drug Dosing 32.3 ml/min Est GFR ( Amer) 46.2 ml/min Est GFR (Non-Af Amer) 39.8 ml/min BUN/Creatinine Ratio 16.2 (10-20) Glucose 127 H (70-99) mg/dl Calcium 10.6 H (8.5-10.1) mg/dl Total Bilirubin 1.1 H (0.2-1) mg/dl AST 343 H (15-37) U/L ALT 128 H (12-78) U/L Alkaline Phosphatase 418 H (45-117) U/L Troponin I < 0.015 (0-0.045) ng/ml Total Protein 7.9 (6.4-8.2) gm/dl Albumin 3.6 (3.4-5.0) gm/dl Globulin 4.3 H (2.5-4.0) gm/dl Albumin/Globulin Ratio 0.8 L (0.9-2) Lipase 84 (73-393) U/L Urine Color Urine Appearance (Clear) Urine pH (4.5-7.5) Ur Specific Robinson (1.000-1.030) Urine Protein (Negative) Urine Glucose (UA) (Negative) Urine Ketones (Negative) Urine Blood (Negative) Urine Nitrite (Negative) Urine Bilirubin (Negative) Urine Urobilinogen (Negative) Ur Leukocyte Esterase (Negative) Urine WBC (Auto) (0-5) /hpf Urine RBC (Auto) (0-4) /hpf U Hyaline Cast (Auto) (0-5) /lpf U Epithel Cells (Auto) (0-5) /lpf Urine Bacteria (Auto) (Negative) Ur Renal Epithelial Cell Amorphous Sediment (None Prsent) Urine Yeast COVID-19 Eval Order Covid19 at [facility] SARS-CoV-2 (PCR) (Negative) 09/28/20 09/28/20 Range/Units 09:08 09:30 WBC (4.8-10.8) K/uL RBC (4.7-6.1) M/uL Hgb (14.0-18.0) g/dL Hct (42-52) % MCV (80-100) fL MCH (25-34) pg MCHC (32-36) g/dL RDW Std Deviation (36.4-46.3) fL RDW Coeff of Lissa (11.5-14.5) % Plt Count (130-400) K/uL MPV (7.4-10.4) fL Immature Gran % (Auto) % Neut % (Auto) % Lymph % (Auto) % Meagher % (Auto) % Eos % (Auto) % Baso % (Auto) % Neut # (Auto) (1.4-6.5) K/uL Lymph # (Auto) (1.2-3.4) K/uL Meagher # (Auto) (0.11-0.59) K/uL Eos # (Auto) (0-0.5) K/uL Baso # (Auto) (0-0.2) K/uL Immature Gran # (Auto) (0.00-0.02) K/uL Sodium (136-145) mmol/L Potassium (3.5-5.1) mmol/L Chloride (98-107) mmol/L Carbon Dioxide (21-32) mmol/L Anion Gap (3-11) BUN (7-18) mg/dl Creatinine (0.6-1.4) mg/dl Est Cr Clr Drug Dosing ml/min Est GFR ( Amer) ml/min Est GFR (Non-Af Amer) ml/min BUN/Creatinine Ratio (10-20) Glucose (70-99) mg/dl Calcium (8.5-10.1) mg/dl Total Bilirubin (0.2-1) mg/dl AST (15-37) U/L ALT (12-78) U/L Alkaline Phosphatase (45-117) U/L Troponin I (0-0.045) ng/ml Total Protein (6.4-8.2) gm/dl Albumin (3.4-5.0) gm/dl Globulin (2.5-4.0) gm/dl Albumin/Globulin Ratio (0.9-2) Lipase (73-393) U/L Urine Color Dark Yellow Urine Appearance Cloudy A (Clear) Urine pH 5.0 (4.5-7.5) Ur Specific Robinson 1.027 (1.000-1.030) Urine Protein 2+ H (Negative) Urine Glucose (UA) Negative (Negative) Urine Ketones Trace H (Negative) Urine Blood Negative (Negative) Urine Nitrite Negative (Negative) Urine Bilirubin Negative (Negative) Urine Urobilinogen Negative (Negative) Ur Leukocyte Esterase Negative (Negative) Urine WBC (Auto) 1-5 (0-5) /hpf Urine RBC (Auto) 0-4 (0-4) /hpf U Hyaline Cast (Auto) 10-30 H (0-5) /lpf U Epithel Cells (Auto) >30 H (0-5) /lpf Urine Bacteria (Auto) Negative (Negative) Ur Renal Epithelial Cell Not Reportable Amorphous Sediment Present A (None Prsent) Urine Yeast Not Reportable COVID-19 Eval Order SARS-CoV-2 (PCR) NEGATIVE (Negative) Administered Medications Acyclovir (Acyclovir 400 Mg Tab) 400 mg PO QAM [facility] Stop: 10/29/20 08:59 Last Admin: 09/29/20 07:33 Dose: 400 mg Documented by: [id number] Albuterol (Albuterol Hfa 8 Gm Inhaler) 1 puffs INH QID PRN PRN Reason: shortness of breath or wheezing Stop: 10/28/20 16:52 Last Admin: 09/28/20 18:39 Dose: 1 puffs Documented by: [id number] Amoxicillin (Amoxicillin 500 Mg Cap) 500 mg PO DAILY [facility] Stop: 10/06/20 08:59 Last Admin: 09/29/20 07:34 Dose: 500 mg Documented by: [id number] Artificial Tears (Artificial Tears) 1 drops OP TID [facility] Stop: 10/28/20 17:14 Last Admin: 09/29/20 07:35 Dose: 1 drops Documented by: [id number] Admin: 09/28/20 20:21 Dose: Not Given Documented by: [id number] Admin: 09/28/20 18:17 Dose: Not Given Documented by: [id number] Dronabinol (Dronabinol 2.5 Mg Cap) 5 mg PO DAILY [facility] Stop: 10/28/20 16:52 Last Admin: 09/29/20 07:33 Dose: 5 mg Documented by: [id number] Admin: 09/28/20 18:16 Dose: 5 mg Documented by: [id number] Hydromorphone HCl (Hydromorphone Inj 0.5 Mg/0.5 Ml Syr) 0.5 mg IV Q15M PRN PRN Reason: Pain Stop: 10/12/20 06:39 Last Admin: 09/28/20 21:02 Dose: 0.5 mg Documented by: [id number] Admin: 09/28/20 13:14 Dose: 0.5 mg Documented by: [id number] Admin: 09/28/20 08:19 Dose: 0.5 mg Documented by: [id number] Admin: 09/28/20 06:51 Dose: 0.5 mg Documented by: [id number] Hydromorphone HCl (Hydromorphone Inj 0.5 Mg/0.5 Ml Syr) 0.5 mg IV Q4H PRN PRN Reason: Pain Stop: 10/12/20 16:52 Last Admin: 09/29/20 07:30 Dose: 0.5 mg Documented by: [id number] Hydromorphone HCl (Hydromorphone Inj 1 Mg/Ml Syringe) 1 mg IV Q4H PRN PRN Reason: Pain Stop: 10/12/20 16:52 Last Admin: 09/28/20 16:59 Dose: 1 mg Documented by: [id number] Metoprolol Succinate (Metoprolol Succ 50mg Ext Rel Tab) 50 mg PO HS [facility] Stop: 10/28/20 20:59 Last Admin: 09/28/20 20:17 Dose: 50 mg Documented by: [id number] Multivitamins/Minerals (Cerovite Adv Formula Tab) 1 tab PO DAILY [facility] Stop: 10/29/20 08:59 Last Admin: 09/29/20 07:34 Dose: 1 tab Documented by: [id number] Rivaroxaban (Rivaroxaban 20 Mg Tab) 20 mg PO DAILY [facility] Stop: 10/29/20 08:59 Last Admin: 09/29/20 07:34 Dose: 20 mg Documented by: [id number] Rosuvastatin Calcium (Rosuvastatin Calcium 20 Mg Tab) 40 mg PO HS [facility] Stop: 10/28/20 20:59 Last Admin: 09/28/20 20:19 Dose: 40 mg Documented by: [id number] Discontinued Medications Acetaminophen (Ofirmev) 1,000 mg in 100 mls @ 400 mls/hr IV NOW STA Stop: 09/28/20 06:54 Last Infusion: 09/28/20 08:15 Dose: 0 mls/hr Documented by: [id number] Admin: 09/28/20 06:51 Dose: 400 mls/hr Documented by: [id number] Sodium Chloride (Nss) 500 mls @ 999 mls/hr IV .Q31M ONE Stop: 09/28/20 07:41 Last Infusion: 09/28/20 08:15 Dose: 0 mls/hr Documented by: [id number] Admin: 09/28/20 07:29 Dose: 999 mls/hr Documented by: [id number] Sodium Chloride (Nss 1000ml) 500 mls @ 999 mls/hr IV .Q31M ONE Stop: 09/28/20 08:53 Last Infusion: 09/28/20 09:14 Dose: 0 mls/hr Documented by: [id number] Admin: 09/28/20 08:34 Dose: 999 mls/hr Documented by: [id number] Ondansetron HCl (Ondansetron Inj 2 Mg/Ml 2 Ml Vial) 4 mg IV NOW STA Stop: 09/28/20 06:41 Last Admin: 09/28/20 06:51 Dose: 4 mg Documented by: [id number] Imaging Data Radiologist's Impression: Abdomen/Pelvis CT 09/28/20 06:40 CT SCAN OF THE ABDOMEN AND PELVIS WITHOUT CONTRAST CLINICAL HISTORY: Pt Rt sided flank pain COMPARISON STUDY: 09/21/2020 TECHNIQUE: CT scan of the abdomen and pelvis was performed from the lung bases to the proximal femurs. Images are reviewed in the axial, sagittal, and coronal planes. IV contrast was not administered for this examination. A dose lowering technique was utilized adhering to the principles of ALARA. CT DOSE: 331.06 mGy.cm FINDINGS: Lower chest: There are coronary artery calcifications. There is a small left pleural effusion. There is a 2.5 cm right lower lobe mass abutting the diaphragmatic surface. A 17 mm pleural-based right lower lobe mass. In addition there is an 11 mm pleural-based right lower lobe mass. There are nodular opacities at the left lung base abutting the pleural and fissural surfaces. Liver: There are innumerable space occupying hepatic masses, consistent with metastatic disease. These are more difficult to define on this noncontrast examination. Gallbladder: Unremarkable. Spleen: Normal in size and attenuation. Pancreas: Unremarkable. Adrenal glands: Unremarkable. Kidneys: There are multiple bilateral hypodense renal masses statistically representing cysts. There is no significant hydronephrosis. There are multiple left renal calculi. Bowel: There are no transition zones to indicate bowel obstruction. There is colonic diverticulosis. There is no evidence of acute diverticulitis. There is no evidence of acute appendicitis given the limitations of the study performed without intravenous or oral contrast. Peritoneum: There is no free air. There is trace free fluid. There are multiple retroperitoneal nodules consistent with metastatic disease. These are relatively similar in size to the preceding study. Small omental metastasis are also suspected. There is a fat-containing umbilical hernia. There are small fat- containing inguinal hernias. Vasculature: There is ectasia of the descending thoracic aorta. There is no evidence for abdominal aortic aneurysm. Adenopathy: None. Pelvic viscera: The patient appears be status post a prior prostatectomy. Skeletal structures: There are sclerotic changes involving the right posterior acetabulum, possibly secondary to blastic metastasis. IMPRESSION: 1. Redemonstration of multiple bilateral pulmonary nodules consistent with metastatic disease 2. Redemonstration of multiple hepatic masses consistent with metastatic disease 3. Redemonstration retroperitoneal and omental nodules consistent with metastatic disease 4. No evidence of bowel obstruction. No evidence of free air 5. Left-sided nephrolithiasis. No ureteral or bladder calculi identified 6. Possible sclerotic metastasis involving the right acetabulum ACT 112: Negative or not required by law. Electronically signed by: Gaetano Boo M.D. 09/28/2020 8:17 AM Abdomen Ultrasound 09/28/20 08:51 US abdomen limited CLINICAL HISTORY: Right upper quadrant abdominal pain. Abnormal liver enzymes. COMPARISON STUDY: CT scan dated 09/28/2020 FINDINGS: The gallbladder appears sonographically normal. There are innumerable space occupying hepatic masses consistent with extensive metastasis. There is no ductal dilatation. The common bile duct measured 5 mm. There is no right-sided hydronephrosis. The pancreas appeared normal as visualized. IMPRESSION: 1. Ultrasonographically normal gallbladder. No ductal dilatation 2. Innumerable space occupying hepatic masses consistent with extensive metastasis ACT 112: Negative or not required by law. Electronically signed by: Gaetano Boo M.D. 09/28/2020 9:55 AM Discharge Plan Visit Data Chief Complaint: Flank Pain Stated Complaint: PAIN IN LOWER RIGHT SIDE,VOMITING,CANCER PAT ED Provider: Clark Walker Discharge Problem: Acute right flank pain, Elevated liver enzymes Patient Disposition: Admitted As Inpatient Discharge Instructions Interventions: ED Discharge Assessment Last Done: 09/28/20 16:28
[2020-09-28] MEDS ORDERED: SODIUM CHLORIDE 0.9% 500 ML IV ONE (07:11)
[2020-09-28 07:14] LABS: Alanine Aminotransferase 128 U/L (12-78); Albumin Level 3.6 gm/dl (3.4-5.0); Aspartate Aminotransferase 343 U/L (15-37); BUN Creatinine Ratio 16.2 (10-20); Blood Urea Nitrogen 26 mg/dl (7-18); Calcium 10.6 mg/dl (8.5-10.1); Carbon Dioxide 26 mmol/L (21-32); Chloride 100 mmol/L (98-107); Creatinine Clr Calc Pharmacy 32.3 ml/min; Est GFR (African American) 46.2 ml/min; Est GFR (Non-African American) 39.8 ml/min; Glucose 127 mg/dl (70-99); Lipase 84 U/L (73-393); Potassium 3.7 mmol/L (3.5-5.1); Sodium 133 mmol/L (136-145)
[2020-09-28 07:19] LABS: Albumin Globulin Ratio 0.8 (0.9-2); Alkaline Phosphatase 418 U/L (45-117); Bilirubin,Total 1.1 mg/dl (0.2-1); Globulin 4.3 gm/dl (2.5-4.0); Total Protein 7.9 gm/dl (6.4-8.2); Troponin I < 0.015 ng/ml (0-0.045)
--- NOTE | 2020-09-28 08:18 | CT Scan Report ---
CT SCAN OF THE ABDOMEN AND PELVIS WITHOUT CONTRAST CLINICAL HISTORY: Pt Rt sided flank pain COMPARISON STUDY: 09/21/2020 TECHNIQUE: CT scan of the abdomen and pelvis was performed from the lung bases to the proximal femurs . Images are reviewed in the axial, sagittal, and coronal planes. IV contrast was not administered fo r this examination. A dose lowering technique was utilized adhering to the principles of ALARA. CT DOSE: 331.06 mGy.cm FINDINGS: Lower chest: There are coronary artery calcifications. There is a small left pleural effusion. There is a 2.5 cm right lower lobe mass abutting the diaphragmatic surface. A 17 mm pleural-based right low er lobe mass. In addition there is an 11 mm pleural-based right lower lobe mass. There are nodular op acities at the left lung base abutting the pleural and fissural surfaces. Liver: There are innumerable space occupying hepatic masses, consistent with metastatic disease. Thes e are more difficult to define on this noncontrast examination. Gallbladder: Unremarkable. Spleen: Normal in size and attenuation. Pancreas: Unremarkable. Adrenal glands: Unremarkable. Kidneys: There are multiple bilateral hypodense renal masses statistically representing cysts. There is no significant hydronephrosis. There are multiple left renal calculi. Bowel: There are no transition zones to indicate bowel obstruction. There is colonic diverticulosis. There is no evidence of acute diverticulitis. There is no evidence of acute appendicitis given the li mitations of the study performed without intravenous or oral contrast. Peritoneum: There is no free air. There is trace free fluid. There are multiple retroperitoneal nodul es consistent with metastatic disease. These are relatively similar in size to the preceding study. S mall omental metastasis are also suspected. There is a fat-containing umbilical hernia. There are sma ll fat-containing inguinal hernias. Vasculature: There is ectasia of the descending thoracic aorta. There is no evidence for abdominal ao rtic aneurysm. Adenopathy: None. Pelvic viscera: The patient appears be status post a prior prostatectomy. Skeletal structures: There are sclerotic changes involving the right posterior acetabulum, possibly s econdary to blastic metastasis. IMPRESSION: 1. Redemonstration of multiple bilateral pulmonary nodules consistent with metastatic disease 2. Redemonstration of multiple hepatic masses consistent with metastatic disease 3. Redemonstration retroperitoneal and omental nodules consistent with metastatic disease 4. No evidence of bowel obstruction. No evidence of free air 5. Left-sided nephrolithiasis. No ureteral or bladder calculi identified 6. Possible sclerotic metastasis involving the right acetabulum ACT 112: Negative or not required by law. Electronically signed by: Gaetano Boo M.D. 09/28/2020 8:17 AM
[2020-09-28] MEDS ORDERED: SODIUM CHLORIDE 0.9% 1000ML 500 ML IV ONE (08:23)
--- NOTE | 2020-09-28 09:17 | History & Physical Report ---
Date of Service September 28, 2020 Assessment & Plan (1) Metastatic cancer: Plan: Patient with intractable pain and widely metastatic malignancy. He does have elevation of his liver function tests in a cholestatic pattern however on CT scan there is no defined cholestasis seen. His liver is with multiple metastatic lesions which could impede his biliary flow. Patient was brought in for cancer-related pain control at this time (2) Coronary artery disease: Plan: Patient has a history of coronary artery disease typically on 3 times a week aspirin which was reduced due to anticoagulation for pulmonary embolisms, metoprolol succinate 50 and rosuvastatin 40. 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 The patient reports an aching sensation that woke him up at 4 this morning. The patient has not been able to get his pain under control. He reports nothing makes the pain better or worse. He describes the pain as a sharp stabbing sensation with radiation into the groin. The patient took tramadol without any relief of the pain. The patient has been vomiting. The patient's son reports that the patient has a history of kidney stones as seen on the recent CAT scan. He also has a history of metastatic cancer and is on Xarelto. Allergies Allergy/AdvReac Type Severity Reaction Status Date / Time amlodipine AdvReac Intermediate Confusion Verified 09/28/20 16:28 Home Medications Medication Instructions Recorded Confirmed Type nitroglycerin 0.4 mg sublingual 0.4 mg SUBLINGUAL Q5M PRN 07/08/20 09/28/20 History tablet rosuvastatin 40 mg tablet 40 mg PO HS 07/08/20 09/28/20 History acyclovir 400 mg tablet 400 mg PO QAM 07/09/20 09/28/20 History cholecalciferol (vitamin D3) 50 50 mcg PO QAM 07/09/20 09/28/20 History mcg (2,000 unit) capsule (Vitamin D3) coQ10 (ubiquinol) 200 mg capsule 400 mg PO QAM 07/09/20 09/28/20 History metoprolol succinate 50 mg 50 mg PO HS 07/09/20 09/28/20 History tablet,extended release 24 hr vit C 250 mg-vit E 90 mg-zinc 40 1 tab PO DAILY 07/09/20 09/28/20 History mg-copper 1 [id number] capsule (PreserVision AREDS-2) aspirin 81 mg tablet,delayed 81 mg PO 3XWK 08/25/20 09/28/20 History release dextran 70-hypromellose eye drops 1 drp OPHTHALMIC (EYE) TID 08/25/20 09/28/20 History (Artificial Tears([id number])) leuprolide 7.5 mg intramuscular 0 mg IM UD 08/25/20 09/28/20 History syringe kit (Lupron Depot) omeprazole 40 mg capsule,delayed 40 mg PO DAILY 08/25/20 09/28/20 History release rivaroxaban 20 mg tablet (Xarelto) 20 mg PO DAILY 08/25/20 09/28/20 History albuterol sulfate 90 mcg/actuation 1 inh INHALATION QID PRN #18 g 09/16/20 09/28/20 Rx aerosol inhaler benzonatate 100 mg capsule 100 mg PO BID PRN #30 cap 09/16/20 09/28/20 Rx (Tessalon Perles) dexamethasone 0.75 mg tablet 75 mg PO TID 09/28/20 09/28/20 History penicillin V potassium 500 mg 500 mg PO Q6 09/28/20 09/28/20 History tablet Past Med/Surg History Medical History (Updated 09/16/20 @ 16:13 by Francois Nichols MD) Barretts esophagus Coronary artery disease Cough with hemoptysis GERD (gastroesophageal reflux disease) Heart disease History of radiation therapy For prostate cancer in 1998 at [place] For gynecomastia 09/04/06 at [facility] SBRT to lung 09/07/14 at [facility] Hyperlipidemia Hypertension Kidney stone Macular degeneration Prostate cancer Diagnosed 01/03/99 at [facility] in [place] 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 Scoliosis Unstable angina Vasovagal episode Surgical History H/O blepharoplasty H/O cystoscopy H/O heart artery stent H/O laminectomy H/O rotator cuff surgery Right H/O vasectomy History of bronchoscopy History of cardiac cath History of cataract surgery History of cryosurgery For recurrent prostate cancer August 2005 History of surgery Bronchoscopy, Right thoracoscopy with lower lobectomy and thoracic lymphadenectomy - metastatic prostate cancer 06/09/13 Hx of CABG Hx of tonsillectomy S/P angioplasty with stent Family History Mother , 95yo Macular degeneration Natural with unknown cause Father , 87yo Prostate cancer Brother Esophageal cancer Brother Prostate cancer Sister No problems noted. Son No problems noted. Daughter No problems noted. 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 [employer]; Other Information That Helps Us Care for You: No Feels Safe at Home: Yes Safety Concerns: Feels Safe At This Time caffeine: Yes (1 cup/day) during the past year weight has: remained stable Assistive Devices: Glasses and Hearing Aid - Bilateral Review of Systems Review of Systems: Mild distress and fatigue no headache, no visual changes no speech or swallowing issues no chest pain, pressure or palpitations no shortness of breath, cough or wheezes no abdominal pain, nausea or vomiting, diarrhea or constipation no dysuria, hematuria or frequency no focal joint pain or swelling no back pain, CVA tenderness or radicular pain no bruising, bleeding or rashes no focal signs of weakness or numbness or altered sensation no complaints of anxiety or depression.. Physical Exam Physical Exam: The patient appeared well nourished and normally developed. Vital signs as documented. Head exam is normocephalic atraumatic Neck is without JVD, thyromegaly, or carotid bruits. Lungs are clear to auscultation, no focal loss of breath sounds Cardiac exam, Rhythm is regular.. No murmurs, rubs or gallops. Abdominal exam reveals normal bowel sounds, soft non tender, no masses Extremities are nonedematous and both pedal pulses are present Neurologic exam is alert and oriented, no focal loss of strength or sensation Skin is without bruises or rashes Psychologically is without concerns for anxiety or depression Results & Data Results & Data ([facility]) Vital Signs (Past 12 Hours) Vital Signs Temp Pulse Resp BP BP Pulse Ox 09/28/20 08:18 97.2 F L 17 115/71 95 09/28/20 06:25 96.8 F L 76 18 117/85 93 ECG Additional Comments: EKG shows normal sinus rhythm first degree AV block PG Care Time/CCT Total # of Minutes Spent Total Time Spent with Patient: Total time spent is greater than 50% in coordination of care (as documented) at patient's floor/unit and/or counseling patient: Coding Level of Care Code 88713 Initial Inpt Care Lvl 2 Diagnoses Metastatic cancer C79.9 Area of secondary neoplastic involvement: unspecified site Coronary artery disease I25.10 Hyperlipidemia E78.5 Pulmonary embolism I26.99 Acute cor pulmonale presence: unspecified Chronicity: unspecified Pulmonary embolism type: unspecified (1) Metastatic cancer Area of secondary neoplastic involvement: unspecified site Qualified Code(s): C79.9 - Secondary malignant neoplasm of unspecified site (2) Pulmonary embolism Acute cor pulmonale presence: unspecified Chronicity: unspecified Pulmonary embolism type: unspecified Qualified Code(s): I26.99 - Other pulmonary embolism without acute cor pulmonale
[2020-09-28 09:49] LABS: Appearance Urine Cloudy (Clear); Bacteria Urine Automated Negative (Negative); Bilirubin Urine Negative (Negative); Blood Urine Negative (Negative); Color Urine Dark Yellow; Epithelial Cell Urine Auto >30 /lpf (0-5); Glucose Urine UA Negative (Negative); Ketones Urine Trace (Negative); Leukocyte Esterase Urine Negative (Negative); Nitrite Urine Negative (Negative); Protein Urine 2+ (Negative); RBC Urine Automated 0-4 /hpf (0-4); Specific Gravity Urine 1.027 (1.000-1.030); Urobilinogen Urine Negative (Negative)
--- NOTE | 2020-09-28 09:57 | Ultrasound Report ---
US abdomen limited CLINICAL HISTORY: Right upper quadrant abdominal pain. Abnormal liver enzymes. COMPARISON STUDY: CT scan dated 09/28/2020 FINDINGS: The gallbladder appears sonographically normal. There are innumerable space occupying hepatic masses consistent with extensive metastasis. There is no ductal dilatation. The common bile duct measured 5 mm. There is no right-sided hydronephrosis. The pancreas appeared normal as visualized. IMPRESSION: 1. Ultrasonographically normal gallbladder. No ductal dilatation 2. Innumerable space occupying hepatic masses consistent with extensive metastasis ACT 112: Negative or not required by law. Electronically signed by: Gaetano Boo M.D. 09/28/2020 9:55 AM
[2020-09-28 10:06] LABS: Amorphous Sediment Urine Present (None Prsent)
[2020-09-28] MEDS ORDERED: POLYETHYLENE (MIRALAX) 17 GM PACK PO PRN ×2 (10:28→16:53)
[2020-09-28] MEDS ORDERED: HYDROmorphone INJ 0.5 MG/0.5 ML SYR IV PRN (16:53)
[2020-09-28] MEDS ORDERED: ALBUTEROL HFA 8 GM INHALER INH PRN (16:53)
[2020-09-28] MEDS ORDERED: BENZONATATE 100 MG CAPSULE PO PRN (16:53)
[2020-09-28] MEDS ORDERED: KETOROLAC TROMETHAMINE 15 MG/ML VIAL IV PRN (16:53)
[2020-09-28] MEDS ORDERED: ALUMINUM/MAGNESIUM SUSP 30 ML UDC PO PRN (16:53)
[2020-09-28] MEDS ORDERED: ONDANSETRON INJ 2 MG/ML 2 ML VIAL IV PRN (16:53)
[2020-09-28] MEDS ORDERED: NITROGLYCERIN SL 0.4 MG/TAB TAB SL PRN (16:53)
[2020-09-28] MEDS ORDERED: HYDROmorphone INJ 1 MG/ML SYRINGE IV PRN (16:53)
[2020-09-28] MEDS ORDERED: PROMETHAZINE HCL 12.5 MG in SODIUM CHLORIDE 0.9% 50 ML IV PRN (16:53)
[2020-09-28] MEDS ORDERED: oxyCODONE HCL IR 5 MG TAB (IMMEDIATE RELEASE) PO PRN (16:53)
--- NOTE | 2020-09-28 17:09 | Electrocardiogram Report ---
Test Reason : Blood Pressure : / mmHG Vent. Rate : 080 BPM Atrial Rate : 080 BPM P-R Int : 184 ms QRS Dur : 096 ms QT Int : 398 ms P-R-T Axes : 016 -41 055 degrees QTc Int : 459 ms Normal sinus rhythm Left atrial enlargement Left axis deviation Anterolateral infarct (cited on or before 03-AUG-2020) Abnormal ECG When compared with ECG of 25-AUG-2020 15:44, Non-specific change in ST segment in Anterior leads Nonspecific T wave abnormality, worse in Inferior leads Nonspecific T wave abnormality now evident in Anterior leads QT has lengthened Confirmed by David Thompson ([id number]) on 09/28/2020 5:09:09 PM Referred By: Dima Alvares Confirmed By:Junaid Thompson
[2020-09-28] MEDS: ARTIFICIAL TEARS OP SCH ×2 (18:17→20:21)
[2020-09-28] MEDS ORDERED: ROSUVASTATIN CALCIUM 20 MG TAB PO SCH ×2 (21:00)
[2020-09-28] MEDS ORDERED: METOPROLOL SUCC 50MG EXT REL TAB PO SCH (21:00)
[2020-09-29 07:32] LABS: Albumin Globulin Ratio 0.8 (0.9-2); Albumin Level 2.6 gm/dl (3.4-5.0); BUN Creatinine Ratio 22.9 (10-20); Bilirubin,Total 0.7 mg/dl (0.2-1); Calcium 8.9 mg/dl (8.5-10.1); Creatinine Clr Calc Pharmacy 45.9 ml/min; Est GFR (African American) 70.5 ml/min; Est GFR (Non-African American) 60.8 ml/min; Globulin 3.4 gm/dl (2.5-4.0)
[2020-09-29] MEDS: ARTIFICIAL TEARS OP SCH (07:35)
[2020-09-29 07:49] VITALS: BP 90/54; PULSE 76; TEMP 98.1; O2SAT 96
[2020-09-29] MEDS ORDERED: AMOXICILLIN 500 MG CAP PO SCH (09:00)
[2020-09-29] MEDS ORDERED: ACYCLOVIR 400 MG TAB PO SCH (09:00)
[2020-09-29] MEDS ORDERED: CEROVITE ADV FORMULA TAB PO SCH (09:00)
[2020-09-29] MEDS ORDERED: RIVAROXABAN 20 MG TAB PO SCH (09:00)
--- NOTE | 2020-09-29 12:36 | Palliative Care Consultation ---
Date of Consultation September 29, 2020 Assessment & Plan (1) Acute right flank pain: We discussed trial of oral oxycodone prior to discharge as he will not be able to go home on parenteral hydromorphone. He is agreeable to this. Discussed with RN. We also talked about risks of constipation, unsteadiness, confusion and sedation with opioids. (2) Thrush, oral: Improved (3) Metastatic cancer: Area of secondary neoplastic involvement: unspecified site Qualified Code(s): C79.9 - Secondary malignant neoplasm of unspecified site (4) Prostate cancer: (5) Palliative care encounter: I met with Mr. Santos, his son and SO in the room. They understand that his cancer has progressed and while they want to discuss with urologist tomorrow, they are interested in him returning home with hospice care. We talked about differences between hospice and palliative care. We discussed the hospice benefit and support available. I answered their questions about medications, who would manage his care. They would need 24/7 support at home and are interested in hiring caregivers. I updated Dr. Navarro and case management. Goal would be return to [facility] with hospice care. History of Present Illness Reason for Consultation: goals of care, symptom management Requesting Physician: Dr. Navarro Attending Physician: Franklin Navarro MD History of Present Illness 84 yo gentleman with prostate cancer metastatic to liver, lung, retroperitoneum, omentum and bone with lesions in vertebrae and pelvis. He had a recent hospitalization for PE. He has been having pain in his right lower quadrant that radiates across in abdomen. Pain is worse with coughing or straining. He does have an inguinal hernia. He has been getting relief with IV hydromorphone. He is admitted now for hyponatremia, TOM and elevated liver enzymes. He lives in an apartment at [facility] and his family notes that he has had weakness and some functional decline. His appetite is poor though he notes that it is a little better in the last day or so. He had recent imaging which shows progression of his disease with extensive metastases as above and is scheduled to have a televisit with his urologist tomorrow to discuss the results though family is aware of the results. Allergies Allergy/AdvReac Type Severity Reaction Status Date / Time amlodipine AdvReac Intermediate Confusion Verified 09/28/20 16:28 Home Medications Medication Instructions Recorded Confirmed Type nitroglycerin 0.4 mg sublingual 0.4 mg SUBLINGUAL Q5M PRN 07/08/20 09/28/20 History tablet rosuvastatin 40 mg tablet 40 mg PO HS 07/08/20 09/28/20 History acyclovir 400 mg tablet 400 mg PO QAM 07/09/20 09/28/20 History cholecalciferol (vitamin D3) 50 50 mcg PO QAM 07/09/20 09/28/20 History mcg (2,000 unit) capsule (Vitamin D3) coQ10 (ubiquinol) 200 mg capsule 400 mg PO QAM 07/09/20 09/28/20 History metoprolol succinate 50 mg 50 mg PO HS 07/09/20 09/28/20 History tablet,extended release 24 hr vit C 250 mg-vit E 90 mg-zinc 40 1 tab PO DAILY 07/09/20 09/28/20 History mg-copper 1 [id number] capsule (PreserVision AREDS-2) aspirin 81 mg tablet,delayed 81 mg PO 3XWK 08/25/20 09/28/20 History release dextran 70-hypromellose eye drops 1 drp OPHTHALMIC (EYE) TID 08/25/20 09/28/20 History (Artificial Tears([id number])) leuprolide 7.5 mg intramuscular 0 mg IM UD 08/25/20 09/28/20 History syringe kit (Lupron Depot) omeprazole 40 mg capsule,delayed 40 mg PO DAILY 08/25/20 09/28/20 History release rivaroxaban 20 mg tablet (Xarelto) 20 mg PO DAILY 08/25/20 09/28/20 History albuterol sulfate 90 mcg/actuation 1 inh INHALATION QID PRN #18 g 09/16/20 09/28/20 Rx aerosol inhaler benzonatate 100 mg capsule 100 mg PO BID PRN #30 cap 09/16/20 09/28/20 Rx (Tessalon Perles) dexamethasone 0.75 mg tablet 75 mg PO TID 09/28/20 09/28/20 History penicillin V potassium 500 mg 500 mg PO Q6 09/28/20 09/28/20 History tablet Oxygen Home #1 ea 09/29/20 Rx lorazepam 0.5 mg tablet (Ativan) 0.5 mg PO Q6H PRN #30 tab 09/29/20 Rx ondansetron HCl 4 mg tablet 4 mg PO Q6H PRN #30 tab 09/29/20 Rx (Zofran) oxycodone 5 mg tablet 10 mg PO Q6H PRN #30 tab 09/29/20 Rx Patient History Medical History Barretts esophagus Coronary artery disease Cough with hemoptysis GERD (gastroesophageal reflux disease) Heart disease History of radiation therapy For prostate cancer in 1998 at [place] For gynecomastia 09/04/[address] 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 Scoliosis Unstable angina Vasovagal episode Surgical History H/O blepharoplasty H/O cystoscopy H/O heart artery stent H/O laminectomy H/O rotator cuff surgery Right H/O vasectomy History of bronchoscopy History of cardiac cath History of cataract surgery History of cryosurgery For recurrent prostate cancer August 2005 History of surgery Bronchoscopy, Right thoracoscopy with lower lobectomy and thoracic lymphadenectomy - metastatic prostate cancer 06/09/13 Hx of CABG Hx of tonsillectomy S/P angioplasty with stent Family History Mother , 95yo Macular degeneration Natural with unknown cause Father , 87yo Prostate cancer Brother Esophageal cancer Brother Prostate cancer Sister No problems noted. Son No problems noted. Daughter No problems noted. 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[employer]; Other Information That Helps Us Care for You: No Feels Safe at Home: Yes Safety Concerns: Feels Safe At This Time caffeine: Yes (1 cup/day) during the past year weight has: remained stable Assistive Devices: Hearing Aid - Bilateral Review of Systems Review of Systems: [place] Symptom Assessment Scale Pain 1/3 Dyspnea 1/3 with exertion Nausea 0/3 Anxiety 0/3 Fatigue 1/3 Anorexia 2/3 Drowsiness 0/3 Palliative Performance score 50% Physical Exam Constitutional: no acute distress ENMT: Mouth: oral mucous membranes not dry Respiratory: normal respiratory effort; no labored breathing Gastrointestinal (Abdomen): tender RLQ, no constipation Musculoskeletal: Extremities: extremities normal to inspection Neurologic: awake; not confused Results & Data ([facility]) Vital Signs (Past 12 Hours) Vital Signs Temp Pulse Resp BP Pulse Ox 09/29/20 12:18 98.1 F 76 20 90/54 L 96 09/29/20 07:49 98.1 F 76 20 90/54 L 96 PG Care Time/CCT Total # of Minutes Spent Total Time Spent with Patient: Total time spent is greater than 50% in coordination of care (as documented) at patient's floor/unit and/or counseling patient: total time spent 75 minutes withmore than 50% of time spent on symptom management, hospice, goals of care, family and patient education Coding Level of Care Code 28656 Initial Inpt Care Lvl 3 Diagnoses Acute right flank pain R10.9 Thrush, oral B37.0 Metastatic cancer C79.9 Area of secondary neoplastic involvement: unspecified site Prostate cancer C61 Palliative care encounter Z51.5
--- NOTE | 2020-09-29 18:34 | Discharge Summary ---
Date of Service September 29, 2020 Admission HPI Per Admitting Provider 84-year-old male who presents emergency department complaining of right-sided flank pain. The patient reports an aching sensation that woke him up at 4 this morning. The patient has not been able to get his pain under control. He reports nothing makes the pain better or worse. He describes the pain as a sharp stabbing sensation with radiation into the groin. The patient took tramadol without any relief of the pain. The patient has been vomiting. The patient's son reports that the patient has a history of kidney stones as seen on the recent CAT scan. He also has a history of metastatic cancer and is on Xar elto. Principal Diagnosis Oncological related pain Metastatic prostate cancer Discharge Exam Patient has some pain in his abdomen likely persistent pain from liver metastasis no bony pain felt and no acute abdomen Discharge Data Allergies Allergy/AdvReac Type Severity Reaction Status Date / Time amlodipine AdvReac Intermediate Confusion Verified 09/28/20 16:28 Consultations 09/28/20 08:53 ED Decision to Admit Stat 09/29/20 10:15 Consult Palliative Care Routine Ordered Studies 09/28/20 06:40 CT abd pelvis wo con Stat 09/28/20 08:51 US abdomen limited Stat Hospital Course (1) Metastatic cancer: Widely metastatic prostate cancer including mets to bone and organs such as liver and lung. Previous radiation therapy to his left hip. Patient is now wishing to transition to home hospice care. Patient be home on oxycodone as needed Ativan as needed Zofran. He will initiate hospice care once he is discharged with home health (2) Coronary artery disease: Patient's coronary disease has been stable continuing aspirin, metoprolol 50 and is on rivaroxaban. This is for P pulmonary embolism treatment (3) Hyperlipidemia: On rosuvastatin for dyslipidemia (4) Pulmonary embolism: Continue anticoagulation Total Time Total Time Spent Total Time Spent (In Minutes): It required greater than 30 minutes to prepare this patient for discharge Discharge Plan Discharge Items Patient Disposition: Hospice - Home Reason For Visit: INTRACTABLE CANCER PAIN Discharge Diagnosis: metastatic prostate cancer cancer related pain Activity: Per Instructions section Non-emergency contact: Primary Care Provider Call non-emergency contact if: you have any medication questions, your symptoms worsen and your pain is not controlled Follow-up/Referrals: Dima Alvares [Primary Care Provider] - Diet: Regular Addtl Attending Provider Instructions: please use you pain medicine to help your symptoms, if you have less pain your overall health will improve please contact the home hospice agency as soon as possible Pending Studies at Discharge: No Stand-Alone Forms: [facility] Medications and DC Order Prescriptions: New oxycodone 5 mg Tablet 10 mg PO Q6H PRN (Reason: pain) Qty: 30 RF: 0 lorazepam [Ativan] 0.5 mg tablet 0.5 mg PO Q6H PRN (Reason: anxiety) Qty: 30 RF: 0 ondansetron HCl [Zofran] 4 mg tablet 4 mg PO Q6H PRN (Reason: nausea and vomiting) Qty: 30 RF: 0 (DME) Oxygen Home Liters Per Minute See Rx Instructions .Route Qty: 1 RF: 0 Continued rosuvastatin 40 mg tablet 40 mg PO HS RF: 0 nitroglycerin 0.4 mg tablet, sublingual 0.4 mg sublingual Q5M PRN (Reason: Chest Pain) RF: 0 albuterol sulfate 90 mcg/actuation HFA aerosol inhaler 1 inh inhalation QID PRN (Reason: shortness of breath or wheezing) Qty: 18 RF: 0 benzonatate [Tessalon Perles] 100 mg capsule 100 mg PO BID PRN (Reason: cough) Qty: 30 RF: 0 metoprolol succinate 50 mg tablet extended release 24 hr 50 mg PO HS RF: 0 acyclovir 400 mg Tablet 400 mg PO QAM RF: 0 cholecalciferol (vitamin D3) [Vitamin D3] 50 mcg (2,000 unit) Capsule 50 mcg PO QAM RF: 0 coQ10 (ubiquinol) 200 mg Capsule 400 mg PO QAM RF: 0 PreserVision AREDS-2 250-90-40-1 mg Capsule 1 tab PO DAILY RF: 0 omeprazole 40 mg capsule,delayed release(DR/EC) 40 mg PO DAILY RF: 0 aspirin 81 mg tablet,delayed release (DR/EC) 81 mg PO 3XWK RF: 0 Artificial Tears([id number]) Drops 1 drp OPHTHALMIC (EYE) TID RF: 0 Xarelto 20 mg tablet 20 mg PO DAILY RF: 0 Lupron Depot 7.5 mg Syringe Kit 0 mg IM UD RF: 0 penicillin V potassium 500 mg tablet 500 mg PO Q6 RF: 0 dexamethasone 0.75 mg tablet 75 mg PO TID RF: 0 Discharge Orders: Discharge Order (Routine); Ordered 09/29/20 Ordered By: Franklin Jamison/Other Patient Handouts: What Is Palliative Care?, Hospice The Importance of ... Admission Data Admit Date/Time: 09/28/20 09:42 Attending Provider: Franklin Navarro Admit Provider: Franklin Navarro Primary Care Provider: Dima Alvares Other Providers: Franklin Navarro ; Ludmila Cerda ; [facility] Other Interventions: Discharge Summary Assessment (RN) Last Done: 09/29/20 12:18 Coding Level of Care Code D/C DAY MANAGEMENT >30 MINS Diagnoses Metastatic cancer C79.9 Area of secondary neoplastic involvement: unspecified site Coronary artery disease I25.10 Hyperlipidemia E78.5 Pulmonary embolism I26.99 Acute cor pulmonale presence: unspecified Chronicity: unspecified Pulmonary embolism type: unspecified
[2020-09-30] MEDS ORDERED: ASPIRIN 81 MG ECTAB PO SCH (09:00)
== END 2020-09-29 13:55 | disposition hospice, home (50) | DRG 948 ==
LOC: ED 06:17 → INTOOBSV 09:42 → EDINP 09:42 → 3N 09:43 → EDINP 16:28